=== PATIENT | female | born 1965 | race Caucasian/White ===

== ENCOUNTER → 2016-04-26 | Outpatient (CLI) | payer BC, OTHER ==
--- NOTE | 2016-04-26 10:53 | REP ---
Clinical: History of medullary sponge kidney. Technique: Real time car scale and color evaluation using curved array transducer. Findings: Right kidney is relatively normal in reniform shape and measures 10.0 x 5.8 x 4.0 cm diffusely echogenic calyces is consistent with history of medullary sponge kidney and multiple intrarenal calculi are identified without hydronephrosis. Irregular contour along the lower pole of the right kidney is suggested and mass cannot be excluded. Left kidney is normal in reniform shape and measures 11.5 x 5.6 x 5.8 cm with diffusely echogenic calyces consistent with history of medullary sponge kidney. Multiple intrarenal calculi are identified without evidence for hydronephrosis. Two mid pole cysts measure 2.2 cm and 1.8 cm maximal diameter each. Impression: 1. Evidence for medullary sponge kidney with multiple bilateral intrarenal calculi. Two left renal cysts noted. 2. Contour abnormality along the lower pole of the right kidney cannot exclude mass lesion. Pre and postcontrast CT may be warranted for further investigation. Signed by Gonzalo Polanco MD 04/26/2016 10:44 A
== END ==
LOC: M RAD 08:58
PROVIDERS: ATTEND Urology
DX: N20.0 Calculus of kidney (principal); Q61.5 Medullary cystic kidney

== ENCOUNTER → 2016-07-11 | Outpatient (CLI) | payer BC ==
--- NOTE | 2016-07-11 14:59 | REPMRS ---
Patient History The patient states she had a clinical breast exam in 07/24 Patient has history of skin cancer at age 31 and had first child at age 34. No known family history of cancer. Digital Woman Screen Mammo: July 11, 2016 - Exam #: [id number] Bilateral MLO, CC, and LMO view(s) were taken. Technologist: Kami Yanez, Technologist Prior study comparison: June 07, 2015, digital woman screen mammo performed at [facility]. May 05, 2014, right breast digital mammo diagnostic unilateral, performed at [facility]. FINDINGS: The breast tissue is extremely dense which could obscure a lesion on mammography. There is no evidence of cancer on this mammogram. No significant changes when compared with prior studies. ASSESSMENT: BI-RADS/ACR category 2 mammogram. Benign finding(s). Recommendation Routine screening mammogram of both breasts in 1 year (for women over age 40). This mammogram was interpreted with the aid of an FDA-approved computer-aided dectection system. Electronically Signed By: Gregory Kruse MD 07/11/16 [id number]
== END ==
LOC: M WHC 13:03
PROVIDERS: ATTEND Nurse Practitioner Women's Health
DX: Z12.31 Encounter for screening mammogram for malignant neoplasm of breast (principal); R92.8 Other abnormal and inconclusive findings on diagnostic imaging of breast

== ENCOUNTER → 2016-07-11 | Outpatient (REF) | payer OTHER | LOC: M SFHCWAGY 13:48 | PROVIDERS: ATTEND Nurse Practitioner Women's Health | DX: Z12.4 Encounter for screening for malignant neoplasm of cervix (principal) ==

== ENCOUNTER → 2016-08-16 | Outpatient (CLI) | payer BC, OTHER ==
--- NOTE | 2016-08-16 15:42 | REP ---
Renal ultrasound: Comparisons 04/26/2016. The patient has a history of medullary sponge kidneys. The kidneys are normal size. The right kidney measures 10.4 by 6.2 x 4.8 cm. Left kidney measures 11.4 4.1 x 4.7 cm. Renal cortical echogenicity is normal bilaterally. There is no hydronephrosis, mass or cyst on the right on the left. There are echogenic renal pyramids bilaterally compatible with the nephrocalcinosis of medullary sponge kidneys. This is unchanged from the prior study. The bladder is minimally distended and cannot be further evaluated. We are unable to identify ureteral jets into the urinary bladder, however, there is no hydronephrosis. Impression: Echogenic renal pyramids bilaterally compatible with the nephrocalcinosis associated with medullary sponge kidneys. Otherwise, negative renal ultrasound. No interval change. Signed by Gregory Torrez MD 08/16/2016 03:33 P
== END ==
LOC: M RAD 13:59
PROVIDERS: ATTEND Urology
DX: N20.0 Calculus of kidney (principal)

== ENCOUNTER → 2016-11-01 | Outpatient (CLI) | payer BC, OTHER ==
--- NOTE | 2016-11-01 15:03 | REP ---
KUB, TWO VIEWS: HISTORY: Kidney stones. COMPARISON: 06/13/2015 Multiple calcifications are present in the kidneys consistent with nephrolithiasis. There are no calcifications in the pelvis. Surgical jerry are present in the pelvis. The intestinal gas pattern is nonspecific. IMPRESSION: Bilateral nephrolithiasis. Signed by Siddhartha Csae MD 11/01/2016 03:12 P
== END ==
LOC: M RAD 13:14
PROVIDERS: ATTEND Urology
DX: N20.0 Calculus of kidney (principal)

== ENCOUNTER → 2017-02-14 | Outpatient (CLI) | payer BC, OTHER ==
--- NOTE | 2017-02-14 15:42 | REP ---
KUB, ONE VIEW: HISTORY: Renal calculi. COMPARISON: 11/01/2016. Multiple calcifications are present in the kidneys consistent with nephrolithiasis. Surgical jerry are present in the pelvis. The intestinal gas pattern is nonspecific. IMPRESSION: Bilateral nephrolithiasis. Signed by Siddhartha Case MD 02/14/2017 03:50 P
--- NOTE | 2017-02-14 16:54 | REP ---
RENAL ULTRASOUND: HISTORY: Nephrocalcinosis. COMPARISON: 08/16/2016 The kidneys are normal in echogenicity. The right kidney measures 6.4 cm in transverse x 4.9 cm in AP x 10 cm in cephalocaudal dimensions. The left kidney measures 6.2 cm in transverse x 6 cm in AP x 10.2 cm in cephalocaudal dimensions. Multiple calcifications are present in the kidneys bilaterally. Two cysts are present in the lower pole of the left kidney. These measure 1.5 and 2.5 cm in maximum dimension. There are no filling defects in the urinary bladder. IMPRESSION: 1. Bilateral nephrolithiasis. 2. There are two small cysts in the lower pole of the left kidney. Signed by Siddhartha Case MD 02/14/2017 04:57 P
== END ==
LOC: M RAD 13:02
PROVIDERS: ATTEND Urology
DX: N20.0 Calculus of kidney (principal); N28.1 Cyst of kidney, acquired

== ENCOUNTER → 2017-03-27 | Outpatient (REF) | payer OTHER ==
[2017-03-27 20:00] LABS: HEMATOCRIT 40.1 % (36.0-47.0); HEMOGLOBIN 12.9 g/dl (12.0-16.0); MEAN CORPUSCULAR HEMOGLOBIN 31.2 pg (27.0-33.0); MEAN CORPUSCULAR HGB CONC 32.2 g/dl (32.0-36.5); MEAN CORPUSCULAR VOLUME 97.1 fl (80.0-96.0); PLATELET COUNT, AUTOMATED 221 10^3/uL (150-450); RED BLOOD COUNT 4.13 10^6/uL (4.00-5.40); WHITE BLOOD COUNT 5.1 10^3/uL (4.0-10.0)
[2017-03-27 20:05] LABS: FOLATE 17.6 NG/ML (>5.4); VITAMIN B12 LEVEL 627 PG/ML (247-911)
[2017-03-27 20:07] LABS: ALBUMIN/GLOBULIN RATIO 1.03 (1.00-1.93); ALKALINE PHOSPHATASE 59 U/L (45-117); ALT/SGPT 24 U/L (12-78); ANION GAP 5 MEQ/L (8-16); AST/SGOT 20 U/L (7-37); BILIRUBIN,TOTAL 0.5 MG/DL (0.2-1.0); BLOOD UREA NITROGEN 9 MG/DL (7-18); CARBON DIOXIDE LEVEL 32 MEQ/L (21-32); CHLORIDE LEVEL 102 MEQ/L (98-107); FREE T4 0.76 NG/DL (0.76-1.46); GLOMERULAR FILTRATION RATE > 60.0 (>51); GLUCOSE, FASTING 101 MG/DL (70-105); POTASSIUM SERUM 4.1 MEQ/L (3.5-5.1); SODIUM LEVEL 139 MEQ/L (136-145); TOTAL PROTEIN 7.9 GM/DL (6.4-8.2)
[2017-03-27 20:54] LABS: TOTAL 25(OH) VITAMIN D 9.7 NG/ML (30.0-100.0)
== END ==
LOC: M SFHCADAM 14:56
DX: R53.83 Other fatigue (principal); N20.2 Calculus of kidney with calculus of ureter

== ENCOUNTER 2017-05-16 06:42 | Day surgery (SDC) | payer BC, OTHER ==
[2017-05-16] MEDS ORDERED: NS 1,000 ML IV (07:00)
[2017-05-16] MEDS ORDERED: PROPOFOL 200 MG/20 ML VIAL As Ordered ×4 (07:07→07:08)
[2017-05-16] MEDS ORDERED: LIDOCAINE 2% INJ 100 MG/5 ML SDV (FOR ANES.) As Ordered ×4 (07:07→07:08)
[2017-05-16] MEDS ORDERED: SIMETHICONE 40MG/0.6ML DROPS 30ML As Ordered (07:15)
[2017-05-16] MEDS ORDERED: ONDANSETRON 4MG/2ML VIAL (J2405) As Ordered (08:10)
== END 2017-05-16 08:51 | disposition home or self-care (01) ==
LOC: M OPP 06:42
DX: Z12.11 Encounter for screening for malignant neoplasm of colon (principal); Q43.8 Other specified congenital malformations of intestine; Q61.5 Medullary cystic kidney; Q79.2 Exomphalos; Z87.442 Personal history of urinary calculi; Z88.1 Allergy status to other antibiotic agents; Z88.2 Allergy status to sulfonamides; Z83.71 Family history of colonic polyps
CPT/HCPCS: G0121

== ENCOUNTER → 2017-07-17 | Outpatient (CLI) | payer BC | LOC: M WHC 13:06 | DX: Z13.21 Encounter for screening for nutritional disorder (principal); Z13.820 Encounter for screening for osteoporosis | CPT/HCPCS: 77067 ==

== ENCOUNTER → 2017-07-26 | Outpatient (CLI) | payer BC, OTHER | LOC: M WUC 10:52 | DX: S92.351A Displaced fracture of fifth metatarsal bone, right foot, initial encounter for closed fracture (principal); X58.XXXA Exposure to other specified factors, initial encounter; Y92.89 Other specified places as the place of occurrence of the external cause | CPT/HCPCS: 73630 ==

== ENCOUNTER → 2017-11-13 | Outpatient (CLI) | payer BC, OTHER | LOC: M RAD 07:05 | DX: N20.0 Calculus of kidney (principal) ==

== ENCOUNTER → 2017-12-25 | Outpatient (CLI) | payer BC, OTHER | LOC: M ADAMS 16:00 | DX: M79.671 Pain in right foot (principal) | CPT/HCPCS: 73630 ==

== ENCOUNTER → 2018-01-05 | Outpatient (CLI) | payer BC, OTHER ==
[2018-01-05 19:47] LABS: HEMATOCRIT 38.5 % (36.0-47.0); HEMOGLOBIN 12.2 g/dl (12.0-15.5); MEAN CORPUSCULAR HGB CONC 31.7 g/dl (32.0-36.5); PLATELET COUNT, AUTOMATED 168 10^3/uL (150-450); RED BLOOD COUNT 3.93 10^6/uL (4.00-5.40); RED CELL DISTRIBUTION WIDTH 12.9 % (11.5-14.5); WHITE BLOOD COUNT 4.5 10^3/uL (4.0-10.0)
[2018-01-05 20:04] LABS: ALBUMIN 3.9 GM/DL (3.2-5.2); ALBUMIN/GLOBULIN RATIO 1.18 (1.00-1.93); ALKALINE PHOSPHATASE 64 U/L (45-117); ALT/SGPT 26 U/L (12-78); ANION GAP 4 MEQ/L (8-16); AST/SGOT 22 U/L (7-37); BILIRUBIN,TOTAL 0.5 MG/DL (0.2-1.0); BLOOD UREA NITROGEN 10 MG/DL (7-18); CALCIUM LEVEL 9.1 MG/DL (8.5-10.1); CARBON DIOXIDE LEVEL 30 MEQ/L (21-32); CHLORIDE LEVEL 104 MEQ/L (98-107); FREE T4 0.81 NG/DL (0.76-1.46); GLOMERULAR FILTRATION RATE > 60.0 (>51); GLUCOSE, FASTING 84 MG/DL (70-100); POTASSIUM SERUM 4.3 MEQ/L (3.5-5.1); SODIUM LEVEL 138 MEQ/L (136-145); TOTAL PROTEIN 7.2 GM/DL (6.4-8.2)
[2018-01-05 20:05] LABS: PTH INTACT 88.5 PG/ML (18.5-88.0); TOTAL 25(OH) VITAMIN D 52.4 NG/ML (30.0-100.0)
[2018-01-07 10:13] LABS: TISSUE TRANSGLUTAMINASE IgA <2 U/mL (0-3)
== END ==
LOC: M WUC 17:37
DX: M81.8 Other osteoporosis without current pathological fracture (principal); Q61.5 Medullary cystic kidney; E55.9 Vitamin D deficiency, unspecified
CPT/HCPCS: 84443

== ENCOUNTER → 2018-01-09 | Outpatient (CLI) | payer OTHER, BC ==
[2018-01-09 17:12] LABS: PTH INTACT 74.5 PG/ML (18.5-88.0)
== END ==
LOC: M WUC 14:50
DX: M81.8 Other osteoporosis without current pathological fracture (principal)

== ENCOUNTER → 2018-07-23 | Outpatient (CLI) | payer BC ==
[~2018-07-23] MED LIST: CIPR250T3 PO; MAGN200T8 PO; MIRA33504 PO; VITA50005 PO; VITATAB11 PO
--- NOTE | 2018-07-23 17:21 | REPMRS ---
Patient History The patient states she had a clinical breast exam in 07/2018. No known family history of cancer. Digital Woman Screen Mammo: July 23, 2018 - Exam #: [id number] Bilateral MLO, CC, and LMO view(s) were taken. Technologist: Kami Yanez, Technologist Prior study comparison: July 17, 2017, digital woman screen mammo performed at [facility]. July 11, 2016, digital woman screen mammo performed at [facility]. June 07, 2015, digital woman screen mammo performed at [facility]. FINDINGS: The breast tissue is heterogeneously dense. This may lower the sensitivity of mammography. There is a moderate amount of heterogeneously dense fibroglandular tissue which is fairly symmetric. There is no interval development of dominant mass, architectural distortion, or clustered microcalcification typical of malignancy. There has been no change in the appearance of the mammogram from the prior studies. 3-D tomosynthesis shows no additional findings. Assessment: BI-RADS/ACR category 1 mammogram. Negative Mammogram. Recommendation Routine screening mammogram of both breasts in 1 year (for women over age 40). This patient's Lifetime Breast Cancer RIsk is estimated at 11.2 %. This mammogram was interpreted with the aid of an FDA-approved computer-aided dectection system. Electronically Signed By: Roberto Cheatham MD 07/23/18 [id number]
== END ==
LOC: M WHC 13:20
PROVIDERS: ATTEND Nurse Practitioner Women's Health
DX: Z12.31 Encounter for screening mammogram for malignant neoplasm of breast (principal)

== ENCOUNTER → 2018-07-23 | Outpatient (REF) | payer OTHER ==
[2018-07-25 15:51] LABS: HPV HYBRID CAPTURE II Negative (Negative)
== END ==
LOC: M SFHCWAGY 13:20
PROVIDERS: ATTEND Nurse Practitioner Women's Health
DX: Z12.4 Encounter for screening for malignant neoplasm of cervix (principal)
CPT/HCPCS: 87624; G0123

== ENCOUNTER → 2018-08-27 | Outpatient (CLI) | payer BC, OTHER ==
--- NOTE | 2018-08-27 16:15 | REP ---
Unilateral left-sided rib series: Five views including PA chest. History: Chronic pain. Comparison chest x-ray: June 28, 2013. Findings: PA chest radiograph is normal. There is no evidence of pneumothorax or hydrothorax. Mediastinum is not widened. The aorta somewhat tortuous. Heart is not enlarged. Multiple views of the left rib cage show no evidence of rib fracture or bony destructive lesion. Impression: Negative left rib radiographs. Electronically Signed by Ronald Cheatham MD 08/27/2018 04:07 P
--- NOTE | 2018-08-27 16:18 | REP ---
Thoracic spine series: Three views. History: Chronic pain. Comparison is made with prior chest x-rays from June 28, 2013. Findings: There is a mild S-shaped thoracic scoliotic curvature. There is diffuse osteopenia. The curvature is unchanged. There is minimal wedging of one of the mid-thoracic vertebrae, also unchanged from the 2014 study. Mild degenerative disc changes are noted. No paravertebral soft-tissue mass is seen. No bony destructive lesion is appreciated. Swimmers lateral view shows no additional abnormality. Impression: Mild diffuse osteopenia. Mild thoracic scoliosis. Degenerative disc changes. No acute abnormality. Electronically Signed by Ronald Cheatham MD 08/27/2018 04:09 P
== END ==
LOC: M ADAMS 15:05
PROVIDERS: ATTEND Physician Assistant
DX: M41.54 Other secondary scoliosis, thoracic region (principal); M51.34 Other intervertebral disc degeneration, thoracic region

== ENCOUNTER → 2018-09-16 | Outpatient (REF) | payer OTHER | LOC: M SFHCADAM 11:34 | PROVIDERS: ATTEND Family Medicine | DX: M81.8 Other osteoporosis without current pathological fracture (principal); Q61.5 Medullary cystic kidney; E55.9 Vitamin D deficiency, unspecified ==

== ENCOUNTER → 2018-11-27 | Outpatient (CLI) | payer BC, OTHER ==
--- NOTE | 2018-11-27 15:06 | REP ---
REASON: History of renal calculi. COMPARISON: Multiple, the latest prior of which is dated 11/13/2017. The right kidney measures 10.2 x 5.3 x 3.7 cm. The left kidney measures 10.8 x 6 x 5.8 cm. Numerable echogenic foci are again seen throughout each kidney which casts acoustic shadows consistent with nephrolithiasis. These are too numerous to count or individually assess. Overall, there does not appear to be a significant change when compared to the prior exam. There is bilateral caliceal prominence as was on the prior exam. There is no everette hydronephrosis on either side. The renal cortical echoes are again seen to be within normal limits. Evaluation of the urinary bladder was performed ultrasonographically, solely for the purpose of assessing for urojet phenomena from each UV junction. The images provided confirm bilateral urojet phenomena. IMPRESSION: Bilateral nephrolithiasis as described above, essentially unchanged when compared to the prior exam. Electronically Signed by Gian Mora DO 11/27/2018 03:57 P
== END ==
LOC: M RAD 12:53
PROVIDERS: ATTEND Urology
DX: N20.0 Calculus of kidney (principal)

== ENCOUNTER 2019-07-23 10:40 | Inpatient (IN) | payer BC, OTHER ==
[~2019-07-23] VITALS: Ht 180.3 cm; Wt 71.0 kg
[2019-07-23] MEDS ORDERED: ALEN70TA74 PO (10:49)
[2019-07-23] MEDS ORDERED: VITA50005 PO (10:49)
[2019-07-23] MEDS ORDERED: NS 1,000 ML IV ONE (11:15)
[2019-07-23 11:43] LABS: BASO % 0.3 % (0.0-1.0); HEMATOCRIT 40.6 % (36.0-47.0); HEMOGLOBIN 13.3 g/dl (12.0-15.5); LYMPH % 14.5 % (24.0-44.0); MEAN CORPUSCULAR HEMOGLOBIN 31.1 pg (27.0-33.0); MEAN CORPUSCULAR HGB CONC 32.8 g/dl (32.0-36.5); MEAN CORPUSCULAR VOLUME 95.1 fl (80.0-96.0); MONO # 0.6 10^3/uL (0.0-0.8); NEUTROPHILS # 5.3 10^3/uL (1.5-8.5); NEUTROPHILS % 75.8 % (36.0-66.0); PLATELET COUNT, AUTOMATED 179 10^3/uL (150-450); RED BLOOD COUNT 4.27 10^6/uL (4.00-5.40); WHITE BLOOD COUNT 6.9 10^3/uL (4.0-10.0)
[2019-07-23 12:11] LABS: CALCIUM LEVEL 8.7 MG/DL (8.5-10.1); CREATININE FOR GFR 1.07 MG/DL (0.55-1.30); GLOMERULAR FILTRATION RATE 57.1 (>51); POTASSIUM SERUM 3.7 MEQ/L (3.5-5.1)
[2019-07-23] MEDS ORDERED: NS 1,000 ML IV SCH (13:15)
[2019-07-23] MEDS ORDERED: MIRA3350 PO (13:38)
[2019-07-23] MEDS ORDERED: MAGN400C2 PO (13:38)
[2019-07-23] MEDS ORDERED: EQL50TAB2 PO (13:38)
[2019-07-23] MEDS ORDERED: MEROPENEM INJ 1 GM in IV 1 EA IV ONE (13:45)
--- NOTE | 2019-07-23 14:49 | REP ---
RENAL ULTRASOUND: Real-time sonographic evaluation of kidneys performed. Kidneys are normal in size and echotexture, right kidney measuring 11.0 x 6.4 x 3.9 cm and left kidney 10.6 x 4.6 x 5.1 cm. There is an extrarenal pelvis on the right without evidence of hydronephrosis bilaterally. Extensive echogenic calcifications are seen at the corticomedullary junction bilaterally representing medullary calcinosis and renal calculi. Prominent calcification in the upper pole of the right kidney measures 1.6 x 1.3 cm and in the lower pole 1.6 x 0.9 x 1.4 cm. Prominent calcification in the upper pole of the left kidney measures 1.8 cm in diameter. There is a cyst in the upper pole of the left kidney 1.7 cm in diameter. There are ureteral jets in the urinary bladder bilaterally with Doppler color evaluation. There is a small amount of debris in the bladder IMPRESSION: No hydronephrosis. Extensive medullary calcifications and bilateral renal calculi throughout both kidneys. No hydronephrosis. Ureteral jets seen in the urinary bladder. Electronically Signed by Gregory Kruse MD 07/23/2019 02:53 P
[2019-07-23 15:03] VITALS: BP 130/91
[2019-07-23] MEDS ORDERED: PERCOCET 5MG/325MG TAB PO PRN ×2 (15:30)
[2019-07-23] MEDS ORDERED: zolPIDEM TARTRATE 5 MG TAB PO PRN (15:30)
[2019-07-23] MEDS ORDERED: MORPHINE 4 MG/ML 1ML VIAL/SYRINGE (J2270) IV PRN (15:30)
[2019-07-23] MEDS ORDERED: NALOXONE INJ 0.4MG/1ML VIAL (J2310 PER 1MG) IV PRN (15:30)
[2019-07-23] MEDS: ACETAMINOPHEN TAB 650MG DOSE (2X325MG) PO PRN ×2 (15:33→23:02)
[2019-07-23] MEDS ORDERED: IBUPROFEN 400 MG TAB PO PRN (15:45)
[2019-07-23] MEDS ORDERED: MELATONIN (PATIENT'S OWN MED) PO SCH (21:00)
[2019-07-23 22:00] VITALS: BP 101/59
[2019-07-23] MEDS: MEROPENEM INJ 1 GM in IV 1 EA IV SCH (22:16)
[2019-07-24] MEDS: MEROPENEM INJ 1 GM in IV 1 EA IV SCH ×3 (05:52→21:00)
[2019-07-24 06:00] VITALS: BP 113/70
[2019-07-24 06:14] LABS: BASO % 0.2 % (0.0-1.0); EOS % 0.2 % (0.0-3.0); HEMATOCRIT 37.9 % (36.0-47.0); LYMPH # 1.2 10^3/uL (1.5-5.0); LYMPH % 20.2 % (24.0-44.0); MEAN CORPUSCULAR HEMOGLOBIN 30.9 pg (27.0-33.0); MEAN CORPUSCULAR HGB CONC 31.7 g/dl (32.0-36.5); MEAN CORPUSCULAR VOLUME 97.7 fl (80.0-96.0); MONO # 0.6 10^3/uL (0.0-0.8); MONO % 9.8 % (0.0-5.0); NEUTROPHILS # 4.2 10^3/uL (1.5-8.5); NEUTROPHILS % 69.3 % (36.0-66.0); PLATELET COUNT, AUTOMATED 137 10^3/uL (150-450); RED BLOOD COUNT 3.88 10^6/uL (4.00-5.40)
[2019-07-24 06:41] LABS: BLOOD UREA NITROGEN 9 MG/DL (7-18); CALCIUM LEVEL 7.9 MG/DL (8.5-10.1); CARBON DIOXIDE LEVEL 27 MEQ/L (21-32); CHLORIDE LEVEL 109 MEQ/L (98-107); CREATININE FOR GFR 0.84 MG/DL (0.55-1.30); GLOMERULAR FILTRATION RATE > 60.0 (>51); GLUCOSE, FASTING 87 MG/DL (70-100); POTASSIUM SERUM 3.9 MEQ/L (3.5-5.1); SODIUM LEVEL 141 MEQ/L (136-145)
[2019-07-24] MEDS: MAGNESIUM OXIDE 400 MG TAB (MAG-OX) PO SCH (08:41)
[2019-07-24] MEDS: VITAMIN B COMPLEX/VIT C CAP PO SCH (08:41)
[2019-07-24] MEDS: MIRALAX *UNIT DOSE* 17GM PACKET PO SCH (08:41)
[2019-07-24] MEDS ORDERED: NON-FORMULARY 1 EA EA PO SCH (09:00)
--- NOTE | 2019-07-24 09:06 | HPE ---
DATE OF ADMISSION: 07/23/2019 CHIEF COMPLAINT: Fever. 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 Samra Meyer with recurrent kidney stones since the age of 19, multiple lithotripsies, and about 25 kidneys stones removed out of the left kidney with left kidney percutaneous stone removal in 2016. Irritable bowel syndrome with small bowel obstruction times two in 1987, section on omphalocele surgery at , Pseudomonas urinary tract infection detected in 2018 resistant to Levaquin and nitrofurantoin. Patient had been in her usual state of health until last night when she had a low grade temperature of 100.9 at home, when she rechecked it, it was 101.1. She denies any dysuria, urgency, frequency and says that she barely has no symptoms. She was seen at Dr. Kahn's office who did a urinalysis (UA) and treated her with Augmentin. Last night she took two Excedrin due to complaints of headache after sleeping on the floor away from her because she was concerned about COVID-19. Patient has allergies to cephalexin causing rash without hypertension or gastrointestinal upset or anaphylaxis. Patient presented to the minor treatment in the emergency room and found to have a fever of 100.8. Renal ultrasound showed no hydronephrosis or obstructive kidney stone. No pyonephritis. Hospitalist was called to admit for urinary tract infection, prior history of Pseudomonas resistant to nitrofurantoin and Levaquin. Patient, otherwise denies any chills, nausea, vomiting. No abdominal pain, diarrhea, shortness of breath, pressure tightness or cough. Denies anxiety or depression. Patient denies history of irritable bowel syndrome on chronic MiraLAX and is worried about missing her home medications. Her will bring this in later today after work. She is requesting to take her own medications from home. PAST MEDICAL HISTORY: Medullary sponge kidney. Recurrent urinary tract infections and kidneys stones since the age of 19. Lithotripsy. 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 25 kidney stones to date. Basal cell carcinoma (BCCA) times two follows with dermatology in [place] every 6 months. Irritable bowel syndrome. Venous insufficiency. Osteoporosis. Vitamin D deficiency. Pseudomonas urinary trace infection resistant to quinolones and nitrofurantoin. PAST SURGICAL HISTORY: Omphalocele surgery at . Small bowel obstruction times two in 1987. section 2000. Lithotripsies. Varicose vein repair 2013 and 2014. Percutaneous stone removal of left kidney 2015. Colonoscopy May 2017. HOME MEDICATIONS: - vitamin D 50,000 units weekly. - Mag-Ox 400 daily - MiraLAX 17 grams daily - Vitamin B complex one tablet daily - alendronate 70 mg weekly - Cipro 125 daily as needed for urinary tract infection (UTI) prevention - melatonin nightly ALLERGIES: SULFA, CEPHALEXIN causing rash. FAMILY HISTORY: Father with hyperlipidemia. Sister with thyroid nodules. Mother with BCCA. 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 No recreational drug use, alcohol abuse or tobacco abuse. REVIEW OF SYSTEMS: Per the history of present illness (HPI). 12-point system otherwise negative. PHYSICAL EXAMINATION: Temperature 102.4, pulse 91, respiratory rate 15, blood pressure 130/91, 96% on room air. Generally, patient is awake, alert, oriented times three, answering questions appropriately. Anicteric. No jaundice. No cyanosis. No facial asymmetry. Tongue is midline. Moist mucous membranes. No cervical lymphadenopathy, thyromegaly or pharyngeal erythema. Lungs are clear to auscultation. No wheezing, rales or rhonchi. Heart: S1, S2, sinus rhythm. No murmurs, rubs or gallops. Abdomen is soft, nontender, nondistended. Positive bowel sounds in four quadrants. No rebound or guarding. No costovertebral angle tenderness. Extremities: No cyanosis, clubbing or any pitting edema. LABORATORY DATA: White count 6.9, hemoglobin 13, hematocrit 40, platelet count 179. Sodium 139, potassium 3.7, chloride 103, bicarbonate 26, BUN 9, creatinine 1.07, glucose 98, lactic acid 0.9, calcium 8.7. Urinalysis: Yellow hazy appearance, pH 7, specific gravity 1.002. Urine protein negative, glucose negative, ketones negative, 2+ blood, negative nitrites, negative bilirubin, 3+ leukocyte esterase, 38 WBCs, 11 RBCs, 2+ bacteria. Blood cultures times two sets negative and pending. Urine culture is pending. Renal ultrasound: No hydronephrosis. Extensive medullary calcifications and bilateral renal calculi throughout both kidneys. No hydronephrosis, ureteral jets seen in the urinary bladder. ASSESSMENT/PLAN: 53-year-old female with history of medullary sponge kidney with recurrent kidney stones since the age of 19, multiple lithotripsies and 25 kidney stones today, omphalocele surgery as a kid due to Noemi-Wiedemann syndrome, irritable bowel syndrome presented to the emergency room with low grade fever at home and found to have a fever of 102.4 and a UTI admitted for sepsis secondary to UTI. IMPRESSION: 1. Sepsis secondary to urinary tract infection: Previous culture grew out Pseudomonas resistant to Levaquin and nitrofurantoin. Patient has an allergy to cephalexin causing a rash. No hypotension or anaphylaxis. Patient is currently started on meropenem every 8 hours. Await urine culture. Monitor for transient bacteremia on blood cultures. Symptomatic and supportive care with Tylenol as needed for fever. Ibuprofen if patient has persistent fever until she defervesces. Intravenous fluids. Lactic acid is normal. Patient is medically stable to stay on the medical/surgical floor at this time. Patient's renal ultrasound did not show any hydronephrosis. Creatinine is normal. Therefore, will permit the use of Ibuprofen. 2. Irritable bowel syndrome: Patient may resume her home dose of MiraLAX. 3. Osteoporosis: Continue on alendronate, vitamin D supplementation. 4. Chronic insomnia: May resume on home dose of melatonin nightly. 5. Medullary sponge kidney with recurrent kidney stones. Monitor for obstructive stones. Denies any hematuria. Renal ultrasound shows no obstruction. Trial of IV fluids. 6. Recurrent UTI. on merem IV.awaiting sensitivity results. will need to complete iv antibiotics with daily infusion as outpt as pt needs to return to work this week. Deep venous thrombosis (DVT) prophylaxis with compression stockings. MTDD
--- NOTE | 2019-07-24 13:55 | IPNPDOC ---
Date Seen The patient was seen on 07/24/19. Progress Note SUBJECTIVE: c/o chills and night sweats overnight, with Tmax 102.4.denies dysuria, urgency, frequency. no n/v/abd pain/d/constipation. PHYSICAL EXAMINATION: vitals: pls see below Generally, patient is awake, alert, oriented times three, answering questions appropriately. HEENT:Anicteric. No jaundice. No cyanosis. No facial asymmetry. Tongue is midline. Moist mucous membranes. No cervical lymphadenopathy, thyromegaly or pharyngeal erythema.NO jvd. Lungs are clear to auscultation. I:E ratio 3:1. No wheezing, rales or rhonchi. Heart: S1, S2, sinus rhythm. No murmurs, rubs or gallops. Abdomen is soft, nontender, nondistended. Positive bowel sounds in four quadrants. No rebound or guarding. No costovertebral angle tenderness. Extremities: No cyanosis, clubbing or any pitting edema. LABORATORY DATA: see below Urinalysis: Yellow hazy appearance, pH 7, specific gravity 1.002. Urine protein negative, glucose negative, ketones negative, 2+ blood, negative nitrites, negative bilirubin, 3+ leukocyte esterase, 38 WBCs, 11 RBCs, 2+ bacteria. MICROBIOLOGY: Blood cultures times two sets negative and pending. Urine culture is pending. Renal ultrasound: No hydronephrosis. Extensive medullary calcifications and bilateral renal calculi throughout both kidneys. No hydronephrosis, ureteral jets seen in the urinary bladder. 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 Samra Meyer with recurrent kidney stones since the age of 19, multiple lithotripsies, and about 25 kidneys stones removed out of the left kidney with left kidney percutaneous stone removal in 2016. Irritable bowel syndrome with small bowel obstruction times two in 1987, section on omphalocele surgery at , Pseudomonas urinary tract infection detected in 2018 resistant to Levaquin and nitrofurantoin. Patient had been in her usual state of health until last night when she had a low grade temperature of 100.9 at home, when she rechecked it, it was 101.1. She denies any dysuria, urgency, frequency and says that she barely has no symptoms. She was seen at Dr. Kahn's office who did a urinalysis (UA) and treated her with Augmentin. Last night she took two Excedrin due to complaints of headache after sleeping on the floor away from her because she was concerned about COVID-19. Patient has allergies to cephalexin causing rash without hypertension or gastrointestinal upset or anaphylaxis. Patient presented to the [facility] treatment in the emergency room and found to have a fever of 100.8. Renal ultrasound showed no hydronephrosis or obstructive kidney stone. No pyonephritis. Hospitalist was called to admit for urinary tract infection, prior history of Pseudomonas resistant to nitrofurantoin and Levaquin. Patient, otherwise denies any chills, nausea, vomiting. No abdominal pain, diarrhea, shortness of breath, pressure tightness or cough. Denies anxiety or depression. Patient denies history of irritable bowel syndrome on chronic MiraLAX and is worried about missing her home medications. Her will bring this in later today after work. She is requesting to take her own medications from home. IMPRESSION: 1. Sepsis secondary to urinary tract infection: Previous culture grew out Pseudomonas resistant to Levaquin and nitrofurantoin. Patient has an allergy to cephalexin causing a rash. No hypotension or anaphylaxis. Patient is currently started on meropenem every 8 hours. Await urine culture. Monitor for transient bacteremia on blood cultures. Symptomatic and supportive care with Tylenol as needed for fever. Ibuprofen if patient has persistent fever until she defervesces. Intravenous fluids. Lactic acid is normal. Patient is medically stable to stay on the medical/surgical floor at this time. Patient's renal ultrasound did not show any hydronephrosis. Creatinine is normal. Therefore, will permit the use of Ibuprofen, but will monitor for azotemia. 2. Complicated UTI in the setting of Medullary Sponge Kidney, with recurrent kidney stones. no signs of hydronephrosis, pyelonephritis. on IV merem. awaiting urine culture results. may complete 7days course of abx via daily iv infusions. Tmax 102.4, but has since defervesced, with normal wbc count and asymptomatic. 3. Irritable bowel syndrome: Patient may resume her home dose of MiraLAX. 4. Osteoporosis: Continue on alendronate, vitamin D supplementation. 5. Chronic insomnia: May resume on home dose of melatonin nightly. 6. Medullary sponge kidney with recurrent kidney stones. Monitor for obstructive stones. Denies any hematuria. Renal ultrasound shows no obstruction. Trial of IV fluids. Deep venous thrombosis (DVT) prophylaxis with compression stockings. VS, I&O, 24H, Fishbone Vital Signs/I&O Vital Signs Date Time Temp Pulse Resp B/P (MAP) Pulse Ox O2 Delivery O2 Flow Rate FiO2 07/24/19 06:00 98.8 71 18 113/70 (84) 99 Room Air I&O- Last 24 Hours up to 6 AM 07/24/19 06:00 Intake Total 2080 ml Output Total 0 ml Balance 2080 ml Laboratory Data 24H LABS Laboratory Tests 2 07/24/19 05:40: Immature Granulocyte % (Auto) 0.3, Neutrophils (%) (Auto) 69.3H, Lymphocytes (%) (Auto) 20.2L, Monocytes (%) (Auto) 9.8H, Eosinophils (%) (Auto) 0.2, Basophils (%) (Auto) 0.2, Neutrophils # (Auto) 4.2, Lymphocytes # (Auto) 1.2L, Monocytes # (Auto) 0.6, Eosinophils # (Auto) 0.0, Basophils # (Auto) 0.0, Nucleated Red Blood Cells % (auto) 0.0, Anion Gap 5L, Glomerular Filtration Rate > 60.0, Calcium Level 7.9L CBC/BMP Laboratory Tests 07/24/19 05:40 Microbiology Microbiology 07/23/19 Blood Culture - Preliminary, Resulted No growth after 24 hours . All specim... 07/23/19 Urine Culture, Received Pending 07/23/19 Blood Culture - Preliminary, Resulted No growth after 24 hours . All specim... SIOMARA SHELTON MD July 24, 2019 13:55
[2019-07-24 14:00] VITALS: BP 116/71
[2019-07-24 22:00] VITALS: BP 114/65
[2019-07-25] MEDS ORDERED: RAMELTEON 8 MG TAB (ROZEREM) PO ONE (02:15)
[2019-07-25 06:00] VITALS: BP 119/66
[2019-07-25] MEDS: MEROPENEM INJ 1 GM in IV 1 EA IV SCH (06:09)
[2019-07-25 06:26] LABS: BASO % 0.6 % (0.0-1.0); EOS # 0.1 10^3/uL (0.0-0.5); EOS % 1.8 % (0.0-3.0); LYMPH # 1.9 10^3/uL (1.5-5.0); LYMPH % 36.8 % (24.0-44.0); MEAN CORPUSCULAR HEMOGLOBIN 31.5 pg (27.0-33.0); MEAN CORPUSCULAR HGB CONC 32.4 g/dl (32.0-36.5); MEAN CORPUSCULAR VOLUME 97.1 fl (80.0-96.0); MONO # 0.6 10^3/uL (0.0-0.8); MONO % 11.9 % (0.0-5.0); NEUTROPHILS # 2.5 10^3/uL (1.5-8.5); NEUTROPHILS % 48.7 % (36.0-66.0); PLATELET COUNT, AUTOMATED 142 10^3/uL (150-450); RED BLOOD COUNT 3.81 10^6/uL (4.00-5.40); WHITE BLOOD COUNT 5.1 10^3/uL (4.0-10.0)
[2019-07-25 06:49] LABS: BLOOD UREA NITROGEN 10 MG/DL (7-18); CALCIUM LEVEL 8.1 MG/DL (8.5-10.1); CARBON DIOXIDE LEVEL 27 MEQ/L (21-32); CHLORIDE LEVEL 109 MEQ/L (98-107); CREATININE FOR GFR 0.73 MG/DL (0.55-1.30); GLOMERULAR FILTRATION RATE > 60.0 (>51); GLUCOSE, FASTING 87 MG/DL (70-100); SODIUM LEVEL 143 MEQ/L (136-145)
[2019-07-25] MEDS ORDERED: ALENDRONATE 35MG TABLET PO SCH (07:00)
[2019-07-25] MEDS ORDERED: traZODone 100 MG TAB PO PRN (08:00)
[2019-07-25] MEDS ORDERED: zolPIDEM TARTRATE 5 MG TAB PO PRN (08:00)
[2019-07-25] MEDS: MAGNESIUM OXIDE 400 MG TAB (MAG-OX) PO SCH (08:25)
[2019-07-25] MEDS: VITAMIN B COMPLEX/VIT C CAP PO SCH ×2 (08:25→08:27)
[2019-07-25] MEDS: MIRALAX *UNIT DOSE* 17GM PACKET PO SCH (08:25)
[2019-07-25] MEDS ORDERED: TOBRAMYCIN SULF IV SCH (11:00)
[2019-07-25] MEDS ORDERED: D5W IV SCH (11:00)
--- NOTE | 2019-07-25 11:55 | IPNPDOC ---
Date Seen The patient was seen on 07/25/19. Progress Note SUBJECTIVE:c/o insomnia without improvement. denies fever, chills. no n/v/d/abd pain. no dysuria,urgency,frequency PHYSICAL EXAMINATION: vitals: pls see below Generally, appears her stated age. normal affect patient is awake, alert, oriented times three, answering questions appropriately. HEENT:Anicteric. PERRL No jaundice. No cyanosis. No facial asymmetry. Tongue is midline. Moist mucous membranes. No cervical lymphadenopathy, thyromegaly or pharyngeal erythema.NO jvd. Lungs are clear to auscultation. I:E ratio 3:1. No wheezing, rales or rhonchi. Heart: S1, S2, sinus rhythm. No murmurs, rubs or gallops. Abdomen is soft, nontender, nondistended. Positive bowel sounds in four quadrants. No rebound or guarding. No costovertebral angle tenderness. Extremities: No cyanosis, clubbing or any pitting edema. LABORATORY DATA: see below Urinalysis: Yellow hazy appearance, pH 7, specific gravity 1.002. Urine protein negative, glucose negative, ketones negative, 2+ blood, negative nitrites, negative bilirubin, 3+ leukocyte esterase, 38 WBCs, 11 RBCs, 2+ bacteria. MICROBIOLOGY: Blood cultures times two sets negative and pending. Urine culture is pseudomonas sensive to tobramycin. Renal ultrasound: No hydronephrosis. Extensive medullary calcifications and bilateral renal calculi throughout both kidneys. No hydronephrosis, ureteral jets seen in the urinary bladder. 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 Samra Meyer with recurrent kidney stones since the age of 19, multiple lithotripsies, and about 25 kidneys stones removed out of the left kidney with left kidney percutaneous stone removal in 2016. Irritable bowel syndrome with small bowel obstruction times two in 1987, section on omphalocele surgery at , Pseudomonas urinary tract infection detected in 2018 resistant to Levaquin and nitrofurantoin. Patient had been in her usual state of health until last night when she had a low grade temperature of 100.9 at home, when she rechecked it, it was 101.1. She denies any dysuria, urgency, frequency and says that she barely has no symptoms. She was seen at Dr. Kahn's office who did a urinalysis (UA) and treated her with Augmentin. Last night she took two Excedrin due to complaints of headache after sleeping on the floor away from her because she was concerned about COVID-19. Patient has allergies to cephalexin causing rash without hypertension or gastrointestinal upset or anaphylaxis. Patient presented to the [facility] treatment in the emergency room and found to have a fever of 100.8. Renal ultrasound showed no hydronephrosis or obstructive kidney stone. No pyonephritis. Hospitalist was called to admit for urinary tract infection, prior history of Pseudomonas resistant to nitrofurantoin and Levaquin. Patient, otherwise denies any chills, nausea, vomiting. No abdominal pain, diarrhea, shortness of breath, pressure tightness or cough. Denies anxiety or depression. Patient denies history of irritable bowel syndrome on chronic MiraLAX and is worried about missing her home medications. Her will bring this in later today after work. She is requesting to take her own medications from home. IMPRESSION: 1. Sepsis secondary to urinary tract infection: Urine cx: pseudomonas resistant to quinolones. Patient has an allergy to cephalexin causing a rash. No hypotension or anaphylaxis. sp meropenem every 8 hours. changed to iv tobramycin daily to monitor for AE overnight, to continue x 3days as outpt via daily infusions in the infusion unit. Symptomatic and supportive care with Tylenol as needed for fever. Ibuprofen if patient has persistent fever until she defervesces. s/p Intravenous fluids. Lactic acid is normal. Patient is medically stable to stay on the medical/surgical floor at this time. Patient's renal ultrasound did not show any hydronephrosis. Creatinine is normal. Therefore, will permit the use of Ibuprofen, but will monitor for azotemia. 2. Complicated UTI in the setting of Medullary Sponge Kidney, with recurrent kidney stones. no signs of hydronephrosis, pyelonephritis may complete 7days course of abx via daily iv infusions. changed to iv tobramycin from iv merem. 3. Irritable bowel syndrome: Patient may resume her home dose of MiraLAX. 4. Osteoporosis: Continue on alendronate, vitamin D supplementation. 5. Chronic insomnia:prn ambien, trazodone 6. Medullary sponge kidney with recurrent kidney stones. Monitor for obstructive stones. Denies any hematuria. Renal ultrasound shows no obstruction. Trial of IV fluids. Deep venous thrombosis (DVT) prophylaxis with compression stockings. disposition:dc home in am. outpt iv tobramycin if approved by insurance x 3days. VS, I&O, 24H, Fishbone Vital Signs/I&O Vital Signs Date Time Temp Pulse Resp B/P (MAP) Pulse Ox O2 Delivery O2 Flow Rate FiO2 07/25/19 06:00 97.3 62 16 119/66 (83) 98 Room Air I&O- Last 24 Hours up to 6 AM 07/25/19 06:00 Intake Total 1755 ml Output Total 0 ml Balance 1755 ml Laboratory Data 24H LABS Laboratory Tests 2 07/25/19 06:04: Immature Granulocyte % (Auto) 0.2, Neutrophils (%) (Auto) 48.7, Lymphocytes (%) (Auto) 36.8, Monocytes (%) (Auto) 11.9H, Eosinophils (%) (Auto) 1.8, Basophils (%) (Auto) 0.6, Neutrophils # (Auto) 2.5, Lymphocytes # (Auto) 1.9, Monocytes # (Auto) 0.6, Eosinophils # (Auto) 0.1, Basophils # (Auto) 0.0, Nucleated Red Blood Cells % (auto) 0.0, Anion Gap 7L, Glomerular Filtration Rate > 60.0, Calcium Level 8.1L CBC/BMP Laboratory Tests 07/25/19 06:04 Microbiology Microbiology 07/23/19 Blood Culture - Preliminary, Resulted No Growth after 48 hours. All Specime... 07/23/19 Urine Culture - Final, Complete Pseudomonas Aeruginosa 07/23/19 Blood Culture - Preliminary, Resulted No Growth after 48 hours. All Specime... SIOMARA SHELTON MD July 25, 2019 11:55
[2019-07-25] MEDS: LACTOBACILLUS ACIDOPHILUS CAP (BACID) PO SCH ×2 (12:31→18:29)
[2019-07-25] MEDS ORDERED: [UNRECOGNIZED DRUG - CODE] IV ×3 (13:53→14:08)
[2019-07-25 14:00] VITALS: BP 110/60
[2019-07-25] MEDS ORDERED: BACI1CAP PO (14:03)
[2019-07-25 22:00] VITALS: BP 118/61
[2019-07-26 06:00] VITALS: BP 117/65
[2019-07-26 06:14] LABS: BASO % 0.8 % (0.0-1.0); EOS # 0.1 10^3/uL (0.0-0.5); EOS % 3.5 % (0.0-3.0); HEMATOCRIT 36.5 % (36.0-47.0); LYMPH # 1.7 10^3/uL (1.5-5.0); MEAN CORPUSCULAR HEMOGLOBIN 31.9 pg (27.0-33.0); MEAN CORPUSCULAR HGB CONC 32.9 g/dl (32.0-36.5); MEAN CORPUSCULAR VOLUME 97.1 fl (80.0-96.0); MONO # 0.4 10^3/uL (0.0-0.8); MONO % 8.8 % (0.0-5.0); NEUTROPHILS # 1.8 10^3/uL (1.5-8.5); NEUTROPHILS % 44.9 % (36.0-66.0); PLATELET COUNT, AUTOMATED 165 10^3/uL (150-450); RED BLOOD COUNT 3.76 10^6/uL (4.00-5.40)
[2019-07-26 06:32] LABS: BLOOD UREA NITROGEN 10 MG/DL (7-18); CALCIUM LEVEL 8.5 MG/DL (8.5-10.1); CARBON DIOXIDE LEVEL 27 MEQ/L (21-32); CHLORIDE LEVEL 109 MEQ/L (98-107); CREATININE FOR GFR 0.72 MG/DL (0.55-1.30); GLOMERULAR FILTRATION RATE > 60.0 (>51); GLUCOSE, FASTING 90 MG/DL (70-100); POTASSIUM SERUM 4.1 MEQ/L (3.5-5.1); SODIUM LEVEL 143 MEQ/L (136-145); TOBRAMYCIN RANDOM 0.4 MCG/ML
[2019-07-26] MEDS: MAGNESIUM OXIDE 400 MG TAB (MAG-OX) PO SCH (08:46)
[2019-07-26] MEDS: LACTOBACILLUS ACIDOPHILUS CAP (BACID) PO SCH (08:46)
[2019-07-26] MEDS: VITAMIN B COMPLEX/VIT C CAP PO SCH (08:47)
[2019-07-26] MEDS: MIRALAX *UNIT DOSE* 17GM PACKET PO SCH (08:48)
[2019-07-26] MEDS ORDERED: D5W IV SCH (09:00)
[2019-07-26] MEDS ORDERED: VITAMIN D 50,000 UNITS CAPSULE (ERGOCALCIFEROL 1.25MG) PO SCH (09:00)
[2019-07-26] MEDS ORDERED: TOBRAMYCIN SULF IV SCH (09:00)
--- NOTE | 2019-08-04 06:36 | DS.PDOC ---
Discharge Summary General Date of Admission July 23, 2019 at 13:09 Date of Discharge 07/26/19 Discharge Summary DISCHARGE DIAGNOSES: Sepsis secondary to urinary tract infection: Urine cx: pseudomonas resistant to quinolones. Medullary Sponge Kidney recurrent kidney stones since the age of 19, multiple lithotripsies Irritable bowel syndrome small bowel obstruction times two in 1987, section on omphalocele surgery at , Pseudomonas urinary tract infection detected in 2018 resistant to Levaquin and nitrofurantoin DISCHARGE MEDICATIONS:PLS SEE BELOW DISCHARGE INSTRUCTIONS: OUTPT IV TOBRAMYCIN X 3DAS, PCP TO REFER TO INFECTIOUS DISEASE. 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 Samra Meyer with recurrent kidney stones since the age of 19, multiple lithotripsies, and about 25 kidneys stones removed out of the left kidney with left kidney percutaneous stone removal in 2016. Irritable bowel syndrome with small bowel obstruction times two in 1987, section on omphalocele surgery at , Pseudomonas urinary tract infection detected in 2018 resistant to Levaquin and nitrofurantoin. Patient had been in her usual state of health until last night when she had a low grade temperature of 100.9 at home, when she rechecked it, it was 101.1. She denies any dysuria, urgency, frequency and says that she barely has no symptoms. She was seen at Dr. Kahn's office who did a urinalysis (UA) and treated her with Augmentin. Last night she took two Excedrin due to complaints of headache after sleeping on the floor away from her because she was concerned about COVID-19. Patient has allergies to cephalexin causing rash without hypertension or gastrointestinal upset or anaphylaxis. Patient presented to the minor treatment in the emergency room and found to have a fever of 100.8. Renal ultrasound showed no hydronephrosis or obstructive kidney stone. No pyonephritis. Hospitalist was called to admit for urinary tract infection, prior history of Pseudomonas resistant to nitrofurantoin and Levaquin. Patient, otherwise denies any chills, nausea, vomiting. No abdominal pain, diarrhea, shortness of breath, pressure tightness or cough. Denies anxiety or depression. Patient denies history of irritable bowel syndrome on chronic MiraLAX and is worried about missing her home medications. Her will bring this in later today after work. She is requesting to take her own medications from home. Sepsis secondary to urinary tract infection: Urine cx: pseudomonas resistant to quinolones. Patient has an allergy to cephalexin causing a rash. No hypotension or anaphylaxis. sp meropenem every 8 hours. changed to iv tobramycin daily to monitor for AE overnight, to continue x 3days as outpt via daily infusions in the infusion unit. Symptomatic and supportive care with Tylenol as needed for fever. Ibuprofen if patient has persistent fever until she defervesces. s/p Intravenous fluids. Lactic acid is normal. Patient is medically stable to stay on the medical/surgical floor at this time. Patient's renal ultrasound did not show any hydronephrosis. Creatinine is normal. Therefore, will permit the use of Ibuprofen, but will monitor for azotemia. Complicated UTI in the setting of Medullary Sponge Kidney, with recurrent kidney stones. no signs of hydronephrosis, pyelonephritis may complete 7days course of abx via daily iv infusions. changed to iv tobramycin from iv merem. Irritable bowel syndrome: Patient may resume her home dose of MiraLAX. Osteoporosis: Continue on alendronate, vitamin D supplementation. Chronic insomnia:prn ambien, trazodone Medullary sponge kidney with recurrent kidney stones. Monitor for obstructive stones. Denies any hematuria. Renal ultrasound shows no obstruction. Trial of IV fluids. Deep venous thrombosis (DVT) prophylaxis with compression stockings. disposition:dc home in am. outpt iv tobramycin if approved by insurance x 3days. DISCHARGE PHYSICAL EXAMINATION: vitals: pls see below Generally, appears her stated age. normal affect patient is awake, alert, oriented times three, answering questions appropriately. HEENT:Anicteric. PERRL No jaundice. No cyanosis. No facial asymmetry. Tongue is midline. Moist mucous membranes. No cervical lymphadenopathy, thyromegaly or pharyngeal erythema.NO jvd. Lungs are clear to auscultation. I:E ratio 3:1. No wheezing, rales or rhonchi. Heart: S1, S2, sinus rhythm. No murmurs, rubs or gallops. Abdomen is soft, nontender, nondistended. Positive bowel sounds in four quadrants. No rebound or guarding. No costovertebral angle tenderness. Extremities: No cyanosis, clubbing or any pitting edema. LABORATORY DATA: see below Urinalysis: Yellow hazy appearance, pH 7, specific gravity 1.002. Urine protein negative, glucose negative, ketones negative, 2+ blood, negative nitrites, negative bilirubin, 3+ leukocyte esterase, 38 WBCs, 11 RBCs, 2+ bacteria. MICROBIOLOGY: Blood cultures times two sets negative and pending. Urine culture is pseudomonas sensive to tobramycin. Renal ultrasound: No hydronephrosis. Extensive medullary calcifications and bilateral renal calculi throughout both kidneys. No hydronephrosis, ureteral jets seen in the urinary bladder. TIME SPENT ON HOSPITAL DISCHARGE: 30 MIN Discharge Medications Scheduled Alendronate Sodium (Alendronate Sodium) 70 Mg Tablet, 70 MG PO QWEEK, (Reported) FRIDAY Bacillus Coagulans (Bacid with Lactospore) 1 Each Capsule, 2 CAP PO [facility] Ergocalciferol (Vitamin D2) (Vitamin D2) 50,000 Units Cap, 50,000 UNIT PO QWEEK, (Reported) MONDAYS Magnesium Oxide (Magnesium) 400 Mg Capsule, 400 MG PO DAILY, (Reported) Polyethylene Glycol 3350 (Miralax) 119 Gm Powder, 17 GM PO DAILY, (Reported) Tobramycin Sulfate (Tobramycin Sulfate) 40 Mg/1 Ml Vial, 350 MG IV Q24H Vitamin B Complex (Vitamin B Complex) 1 Each Tablet, 1 TAB PO DAILY, (Reported) Scheduled PRN Ciprofloxacin HCl (Ciprofloxacin HCl) 250 Mg Tab, 125 MG PO DAILY PRN for UTI PREVENTION, (Reported) TAKE AFTER INTERCOURSE Allergies Coded Allergies: Sulfa (Sulfonamide Antibiotics) (Verified Allergy, Intermediate, rash, 07/23/19) cephalexin (Verified Allergy, Intermediate, rash, 07/23/19) nitrofurantoin (Verified Allergy, Intermediate, fever, 07/23/19) SIOMARA SHELTON MD August 04, 2019 06:36
== END 2019-07-26 13:17 | disposition home or self-care (01) | DRG 720 ==
LOC: M ED 10:40 → M ED INP 13:09 → M MSPAV 14:39
PROVIDERS: ADMIT General Practice; ATTEND General Practice
DX: A41.9 Sepsis, unspecified organism (principal); Q61.5 Medullary cystic kidney; N39.0 Urinary tract infection, site not specified; M81.0 Age-related osteoporosis without current pathological fracture; K58.8 Other irritable bowel syndrome; G47.00 Insomnia, unspecified; Z87.442 Personal history of urinary calculi; Z79.899 Other long term (current) drug therapy; Z88.2 Allergy status to sulfonamides; Z88.8 Allergy status to other drugs, medicaments and biological substances; B96.5 Pseudomonas (aeruginosa) (mallei) (pseudomallei) as the cause of diseases classified elsewhere

== ENCOUNTER → 2019-07-28 | Outpatient (CLI) | payer BC, OTHER ==
[~2019-07-28] MED LIST changes: +ALEN70TA74 PO; +BACI1CAP PO; +EQL50TAB2 PO; +LIDOCAINE 1% MDV 20ML VIAL As Ordered ONE; +MAGN400C2 PO; +MIRA3350 PO; +[UNRECOGNIZED DRUG - CODE] IV
[2019-07-28 15:10] VITALS: BP 130/77
--- NOTE | 2019-07-28 16:20 | REP ---
MIDLINE CATHETER INSERTION WITH SITE KARLADestiny The procedure was performed under the direct supervision of Dr. Kruse. The risks and benefits of the procedure were explained to the patient and informed consent was obtained. The left basilic vein was localized using ultrasound guidance. The skin was prepped and draped in a sterile fashion. 1% lidocaine was used as a local anesthetic. Using ultrasound guidance the basilic vein was cannulated and a 0.018 guidewire was inserted. The needle was removed and the 4.5 Afghan dilator and peel-away sheath was inserted over the guide wire. A 4.5 Afghan single-lumen catheter was left at a length of 16.5 cm. The dilator was removed and the catheter was inserted over the guide wire. The peel-away sheath was removed and the catheter was flushed with heparinized saline as per Hospital protocol. The catheter was affixed to the skin and a sterile dressing was applied. The patient tolerated the procedure well and there were no immediate complications. Electronically Signed by VICENTE Valentin 07/28/2019 03:39 P Electronically Signed by Gregory Kruse MD 07/28/2019 04:11 P
== END ==
LOC: M IRPRO 14:09
PROVIDERS: ATTEND Family Medicine
DX: N39.0 Urinary tract infection, site not specified (principal)
CPT/HCPCS: 36410; 76937; C1751; J1642

== ENCOUNTER → 2019-08-04 | Outpatient (REF) | payer BC, OTHER ==
[~2019-08-04] MED LIST changes: -LIDOCAINE 1% MDV 20ML VIAL As Ordered ONE
[2019-08-04 19:25] LABS: HEMATOCRIT 36.6 % (36.0-47.0); HEMOGLOBIN 12.3 g/dl (12.0-15.5); MEAN CORPUSCULAR HEMOGLOBIN 31.9 pg (27.0-33.0); MEAN CORPUSCULAR HGB CONC 33.6 g/dl (32.0-36.5); MEAN CORPUSCULAR VOLUME 94.8 fl (80.0-96.0); PLATELET COUNT, AUTOMATED 232 10^3/uL (150-450); RED BLOOD COUNT 3.86 10^6/uL (4.00-5.40); WHITE BLOOD COUNT 4.3 10^3/uL (4.0-10.0)
[2019-08-04 19:43] LABS: ALBUMIN 3.8 GM/DL (3.2-5.2); ALT/SGPT 29 U/L (12-78); BILIRUBIN,TOTAL 0.5 MG/DL (0.2-1.0); BLOOD UREA NITROGEN 9 MG/DL (7-18); C REACTIVE PROTEIN QUANTITATIV < 0.30 MG/DL (0.00-0.30); CALCIUM LEVEL 8.7 MG/DL (8.5-10.1); CARBON DIOXIDE LEVEL 30 MEQ/L (21-32); CHLORIDE LEVEL 103 MEQ/L (98-107); CREATININE FOR GFR 0.93 MG/DL (0.55-1.30); GLOMERULAR FILTRATION RATE > 60.0 (>51); GLUCOSE, FASTING 95 MG/DL (70-100); POTASSIUM SERUM 4.5 MEQ/L (3.5-5.1); SODIUM LEVEL 138 MEQ/L (136-145); TOTAL PROTEIN 7.6 GM/DL (6.4-8.2)
[2019-08-04 19:45] LABS: ERYTHROCYTE SEDIMENTATION RATE 26 mm/hr (0-30)
== END ==
LOC: M LAB 19:09
PROVIDERS: ATTEND Internal Medicine Infectious Disease
DX: N39.0 Urinary tract infection, site not specified (principal); N20.0 Calculus of kidney; Q61.5 Medullary cystic kidney; K58.8 Other irritable bowel syndrome

== ENCOUNTER → 2019-08-09 | Outpatient (CLI) | payer BC, OTHER ==
--- NOTE | 2019-08-10 05:04 | REP ---
Clinical: Flank pain. Technique: Axial noncontrast images from the lung bases to the pubic symphysis with coronal and sagittal re-formations. Comparison: 05/31/2010. Findings: The kidneys demonstrate chronic bilateral bulky nephroliths measuring up to approximately 13 mm along with elements of scarring (left greater than right) and scattered hypodensities suggesting simple and complex cysts. No acute perinephric stranding or hydroureteronephrosis is appreciated and no obvious obstructing ureteral calculi are identified. Few small calcifications in the pelvis likely represent phleboliths. Liver, spleen, pancreas, gallbladder, and bilateral adrenal glands are essentially normal for noncontrast evaluation. The enteric system suggests moderate fecal stasis and possible constipation. No bowel obstruction or acute enteric inflammatory process appreciated. Pelvis demonstrates normal bladder and age-appropriate uterus/adnexa. No ascites. No free air. No obvious adenopathy. Abdominal aorta without aneurysm. Musculoskeletal structures demonstrate age-related degenerative changes. Lung bases are clear. Pectus excavatum is suggested. Impression: 1. Bilateral nephroliths up to 13 mm along with chronic changes / scarring likely related to prior obstruction. Bilateral renal lesions likely representing simple and complex cysts. No acute perinephric stranding or hydroureteronephrosis appreciated. Electronically Signed by Gonzalo Polanco MD 08/10/2019 04:55 A
== END ==
LOC: M RAD 11:00
PROVIDERS: ATTEND Urology
DX: N20.0 Calculus of kidney (principal); N39.0 Urinary tract infection, site not specified

== ENCOUNTER → 2019-08-11 | Outpatient (REF) | payer BC, OTHER ==
[2019-08-11 19:06] LABS: HEMATOCRIT 38.6 % (36.0-47.0); HEMOGLOBIN 12.6 g/dl (12.0-15.5); MEAN CORPUSCULAR HGB CONC 32.6 g/dl (32.0-36.5); MEAN CORPUSCULAR VOLUME 94.8 fl (80.0-96.0); PLATELET COUNT, AUTOMATED 221 10^3/uL (150-450); RED BLOOD COUNT 4.07 10^6/uL (4.00-5.40); WHITE BLOOD COUNT 4.3 10^3/uL (4.0-10.0)
[2019-08-11 19:27] LABS: ERYTHROCYTE SEDIMENTATION RATE 16 mm/hr (0-30)
[2019-08-11 19:31] LABS: ALBUMIN 3.9 GM/DL (3.2-5.2); ALT/SGPT 27 U/L (12-78); BILIRUBIN,TOTAL 0.6 MG/DL (0.2-1.0); BLOOD UREA NITROGEN 9 MG/DL (7-18); C REACTIVE PROTEIN QUANTITATIV < 0.30 MG/DL (0.00-0.30); CALCIUM LEVEL 9.1 MG/DL (8.5-10.1); CARBON DIOXIDE LEVEL 30 MEQ/L (21-32); CHLORIDE LEVEL 101 MEQ/L (98-107); CREATININE FOR GFR 0.97 MG/DL (0.55-1.30); GLOMERULAR FILTRATION RATE > 60.0 (>51); GLUCOSE, FASTING 116 MG/DL (70-100); POTASSIUM SERUM 4.2 MEQ/L (3.5-5.1); SODIUM LEVEL 138 MEQ/L (136-145); TOTAL PROTEIN 7.8 GM/DL (6.4-8.2)
== END ==
LOC: M LAB REF 18:57
PROVIDERS: ATTEND Internal Medicine Infectious Disease
DX: N39.0 Urinary tract infection, site not specified (principal); N20.0 Calculus of kidney

== ENCOUNTER → 2019-08-25 | Outpatient (REF) | payer OTHER ==
[2019-08-25 17:55] LABS: ALBUMIN 3.4 GM/DL (3.2-5.2); ALT/SGPT 34 U/L (12-78); BILIRUBIN,TOTAL 0.3 MG/DL (0.2-1.0); BLOOD UREA NITROGEN 7 MG/DL (7-18); C REACTIVE PROTEIN QUANTITATIV 4.67 MG/DL (0.00-0.30); CALCIUM LEVEL 8.7 MG/DL (8.5-10.1); CARBON DIOXIDE LEVEL 28 MEQ/L (21-32); CHLORIDE LEVEL 105 MEQ/L (98-107); CREATININE FOR GFR 0.82 MG/DL (0.55-1.30); GLOMERULAR FILTRATION RATE > 60.0 (>51); GLUCOSE, FASTING 82 MG/DL (70-100); POTASSIUM SERUM 3.7 MEQ/L (3.5-5.1); SODIUM LEVEL 139 MEQ/L (136-145); TOTAL PROTEIN 7.7 GM/DL (6.4-8.2)
[2019-08-25 19:47] LABS: HEMATOCRIT 37.5 % (36.0-47.0); HEMOGLOBIN 12.2 g/dl (12.0-15.5); MEAN CORPUSCULAR HEMOGLOBIN 30.5 pg (27.0-33.0); MEAN CORPUSCULAR HGB CONC 32.5 g/dl (32.0-36.5); MEAN CORPUSCULAR VOLUME 93.8 fl (80.0-96.0); PLATELET COUNT, AUTOMATED 188 10^3/uL (150-450); WHITE BLOOD COUNT 4.8 10^3/uL (4.0-10.0)
[2019-08-25 20:16] LABS: ERYTHROCYTE SEDIMENTATION RATE 63 mm/hr (0-30)
== END ==
LOC: M SHH 14:50
PROVIDERS: ATTEND Internal Medicine Infectious Disease
DX: N39.0 Urinary tract infection, site not specified (principal); N20.0 Calculus of kidney; Q61.5 Medullary cystic kidney; K58.8 Other irritable bowel syndrome

== ENCOUNTER → 2019-09-01 | Outpatient (REF) | payer OTHER ==
[2019-09-01 19:17] LABS: BASO # 0.1 10^3/uL (0.0-0.2); BASO % 1.1 % (0.0-1.0); EOS # 0.1 10^3/uL (0.0-0.5); EOS % 1.6 % (0.0-3.0); HEMATOCRIT 35.1 % (36.0-47.0); HEMOGLOBIN 11.6 g/dl (12.0-15.5); MEAN CORPUSCULAR HEMOGLOBIN 30.7 pg (27.0-33.0); MEAN CORPUSCULAR VOLUME 92.9 fl (80.0-96.0); MONO # 0.3 10^3/uL (0.0-0.8); NEUTROPHILS % 53.9 % (36.0-66.0); PLATELET COUNT, AUTOMATED 408 10^3/uL (150-450); RED BLOOD COUNT 3.78 10^6/uL (4.00-5.40); WHITE BLOOD COUNT 5.5 10^3/uL (4.0-10.0)
[2019-09-01 19:35] LABS: ALBUMIN 3.6 GM/DL (3.2-5.2); ALT/SGPT 30 U/L (12-78); BILIRUBIN,TOTAL 0.6 MG/DL (0.2-1.0); BLOOD UREA NITROGEN 10 MG/DL (7-18); C REACTIVE PROTEIN QUANTITATIV 0.31 MG/DL (0.00-0.30); CALCIUM LEVEL 9.6 MG/DL (8.5-10.1); CARBON DIOXIDE LEVEL 27 MEQ/L (21-32); CHLORIDE LEVEL 103 MEQ/L (98-107); CREATININE FOR GFR 0.98 MG/DL (0.55-1.30); GLOMERULAR FILTRATION RATE > 60.0 (>51); GLUCOSE, FASTING 82 MG/DL (70-100); POTASSIUM SERUM 4.2 MEQ/L (3.5-5.1); SODIUM LEVEL 138 MEQ/L (136-145); TOTAL PROTEIN 8.2 GM/DL (6.4-8.2)
== END ==
LOC: M SHH 18:13
PROVIDERS: ATTEND Internal Medicine Infectious Disease
DX: B37.9 Candidiasis, unspecified (principal)

== ENCOUNTER → 2019-09-07 | Outpatient (REF) | payer OTHER ==
[2019-09-07 17:46] LABS: BASO # 0.1 10^3/uL (0.0-0.2); BASO % 1.2 % (0.0-1.0); EOS # 0.1 10^3/uL (0.0-0.5); EOS % 2.4 % (0.0-3.0); HEMATOCRIT 33.2 % (36.0-47.0); HEMOGLOBIN 10.9 g/dl (12.0-15.5); LYMPH # 1.6 10^3/uL (1.5-5.0); LYMPH % 39.5 % (24.0-44.0); MEAN CORPUSCULAR HEMOGLOBIN 30.4 pg (27.0-33.0); MEAN CORPUSCULAR HGB CONC 32.8 g/dl (32.0-36.5); MEAN CORPUSCULAR VOLUME 92.5 fl (80.0-96.0); MONO # 0.3 10^3/uL (0.0-0.8); MONO % 7.3 % (0.0-5.0); NEUTROPHILS % 49.6 % (36.0-66.0); PLATELET COUNT, AUTOMATED 299 10^3/uL (150-450); RED BLOOD COUNT 3.59 10^6/uL (4.00-5.40); WHITE BLOOD COUNT 4.1 10^3/uL (4.0-10.0)
[2019-09-07 18:04] LABS: ALBUMIN 3.4 GM/DL (3.2-5.2); BILIRUBIN,TOTAL 0.4 MG/DL (0.2-1.0); C REACTIVE PROTEIN QUANTITATIV 0.55 MG/DL (0.00-0.30); CALCIUM LEVEL 9.2 MG/DL (8.5-10.1); CREATININE FOR GFR 1.04 MG/DL (0.55-1.30); POTASSIUM SERUM 4.4 MEQ/L (3.5-5.1); TOTAL PROTEIN 7.5 GM/DL (6.4-8.2)
== END ==
LOC: M SHH 17:36
PROVIDERS: ATTEND Internal Medicine Infectious Disease
DX: B37.9 Candidiasis, unspecified (principal)

== ENCOUNTER → 2019-09-16 | Outpatient (REF) | payer OTHER ==
[2019-09-16 19:46] LABS: BASO % 0.9 % (0.0-1.0); EOS # 0.1 10^3/uL (0.0-0.5); EOS % 2.5 % (0.0-3.0); HEMATOCRIT 33.5 % (36.0-47.0); HEMOGLOBIN 10.9 g/dl (12.0-15.5); LYMPH # 2.1 10^3/uL (1.5-5.0); LYMPH % 46.4 % (24.0-44.0); MEAN CORPUSCULAR HEMOGLOBIN 30.5 pg (27.0-33.0); MEAN CORPUSCULAR HGB CONC 32.5 g/dl (32.0-36.5); MEAN CORPUSCULAR VOLUME 93.8 fl (80.0-96.0); MONO # 0.3 10^3/uL (0.0-0.8); MONO % 6.3 % (0.0-5.0); NEUTROPHILS % 43.7 % (36.0-66.0); PLATELET COUNT, AUTOMATED 212 10^3/uL (150-450); RED BLOOD COUNT 3.57 10^6/uL (4.00-5.40); WHITE BLOOD COUNT 4.5 10^3/uL (4.0-10.0)
[2019-09-16 20:05] LABS: ALBUMIN 3.6 GM/DL (3.2-5.2); ALT/SGPT 25 U/L (12-78); BILIRUBIN,TOTAL 0.5 MG/DL (0.2-1.0); BLOOD UREA NITROGEN 7 MG/DL (7-18); C REACTIVE PROTEIN QUANTITATIV < 0.30 MG/DL (0.00-0.30); CARBON DIOXIDE LEVEL 29 MEQ/L (21-32); CHLORIDE LEVEL 105 MEQ/L (98-107); GLOMERULAR FILTRATION RATE 55.3 (>51); GLUCOSE, FASTING 136 MG/DL (70-100); POTASSIUM SERUM 4.2 MEQ/L (3.5-5.1); SODIUM LEVEL 139 MEQ/L (136-145); TOTAL PROTEIN 7.6 GM/DL (6.4-8.2)
== END ==
LOC: M LAB REF 19:32
PROVIDERS: ATTEND Internal Medicine Infectious Disease
DX: B37.9 Candidiasis, unspecified (principal)

== ENCOUNTER → 2019-10-21 | Outpatient (CLI) | payer BC ==
--- NOTE | 2019-11-08 17:35 | REPMRS ---
Patient History The patient states she had a clinical breast exam in 10/2019. Patient is postmenopausal, has history of basal cell skin cancer at age 31, and had first child at age 34. No known family history of cancer. No Hormone Replacement Therapy Digital Woman Screen Mammo: October 21, 2019 - Exam #: [id number] Bilateral CC and MLO view(s) were taken. Technologist: Ami Tony, Technologist Prior study comparison: July 23, 2018, bilateral digital woman screen mammo performed at [facility]. July 17, 2017, digital woman screen mammo performed at [facility]. July 11, 2016, digital woman screen mammo performed at [facility]. FINDINGS: The breast tissue is extremely dense which could obscure a lesion on mammography. The Volpara volumetric breast density category is: D. There is an extremely dense symmetrical pattern of residual fibroglandular tissue. There has been no change in the appearance of the mammogram from the previous studies. There is no interval development of dominant mass, archetectural distortion, or grouped microcalcifications suggestive of malignancy. 3-D tomosynthesis shows no additional findings. Assessment: BI-RADS/ACR category 1 mammogram. Negative Mammogram. Recommendation Routine screening mammogram of both breasts in 1 year (for women over age 40). This patient's Lifetime Breast Cancer RIsk is estimated at 11.0 %. This mammogram was interpreted with the aid of an FDA-approved computer-aided dectection system. Electronically Signed By: Roberto Cheatham MD 11/08/19 1397
--- NOTE | 2019-11-30 15:26 | DEXA ---
AP SPINE L1 - L4 0.827 -3.0 -2.3 LT FEMUR TOTAL 0.758 -2.0 -1.4 LT NECK 0.782 -1.8 -0.9 RT FEMUR TOTAL 0.755 -2.0 -1.4 RT NECK 0.836 -1.5 -0.5 TOTAL BODY TOTAL OTHER COMMENTS: There is low bone density of the hips. There is osteoporosis of the spine. The density of the spine is decreased 3.2% since 07/17/2017. The density of the left hip has increased 1.3% since 07/17/2017. The density of the right hip has increased 4.9% since 07/17/2017. The the decreased density of the spine does represent a significant change. The increased density of the left hip does not represent significant change. The increased density of the right hip does represent significant change. FOLLOW-UP: Recommendation for the next bone density exam: 2 years. ISMAEL
== END ==
LOC: M WHC 06:12
PROVIDERS: ATTEND Family Medicine
DX: Z12.31 Encounter for screening mammogram for malignant neoplasm of breast (principal); M81.8 Other osteoporosis without current pathological fracture; Z78.0 Asymptomatic menopausal state; Z85.828 Personal history of other malignant neoplasm of skin

== ENCOUNTER → 2019-10-21 | Outpatient (REF) | payer OTHER | LOC: M SFHCADAM 08:39 | PROVIDERS: ATTEND Family Medicine | DX: M81.8 Other osteoporosis without current pathological fracture (principal); E55.9 Vitamin D deficiency, unspecified ==

== ENCOUNTER → 2019-10-21 | Outpatient (REF) | payer OTHER | LOC: M SFHCWAGY 12:27 | PROVIDERS: ATTEND Nurse Practitioner Women's Health | DX: Z12.4 Encounter for screening for malignant neoplasm of cervix (principal) ==

== ENCOUNTER → 2019-10-27 | Outpatient (CLI) | payer BC, OTHER ==
--- NOTE | 2019-11-30 11:22 | REP ---
RIGHT HIP: AP AND LATERAL VIEWS REASON FOR EXAMINATION: Hip pain. FINDINGS: The acetabulum is somewhat shallow. There is mild loss of bony trabeculae in the superior lateral femoral head, which is slightly misshapen. There is mild femoral head flattening. There is no acute fracture, dislocation or subluxation. There is no buttressing. IMPRESSION: Chronic-appearing right hip changes as described above. Since the patient has atraumatic pain, consider follow up with MRI. I will reiterate that there are no priors for comparison. MTDD
== END ==
LOC: M ADAMS 16:20
PROVIDERS: ATTEND Family Medicine
DX: M25.551 Pain in right hip (principal)

== ENCOUNTER 2019-11-10 18:38 | Emergency (ER) | payer BC, OTHER ==
[~2019-11-10] VITALS: Ht 180.3 cm; Wt 65.5 kg
[2019-11-10 18:38] VITALS: BP 143/77
[2019-11-10] MEDS ORDERED: ACETAMINOPHEN TAB 650MG DOSE (2X325MG) PO ONE (19:15)
[2019-11-10 19:27] LABS: BASO % 0.5 % (0.0-1.0); EOS # 0.1 10^3/uL (0.0-0.5); EOS % 1.7 % (0.0-3.0); HEMATOCRIT 36.8 % (36.0-47.0); HEMOGLOBIN 11.8 g/dl (12.0-15.5); LYMPH # 1.5 10^3/uL (1.5-5.0); LYMPH % 35.1 % (24.0-44.0); MEAN CORPUSCULAR HEMOGLOBIN 31.4 pg (27.0-33.0); MEAN CORPUSCULAR HGB CONC 32.1 g/dl (32.0-36.5); MEAN CORPUSCULAR VOLUME 97.9 fl (80.0-96.0); MONO # 0.3 10^3/uL (0.0-0.8); MONO % 7.2 % (0.0-5.0); NEUTROPHILS # 2.3 10^3/uL (1.5-8.5); PLATELET COUNT, AUTOMATED 206 10^3/uL (150-450); RED BLOOD COUNT 3.76 10^6/uL (4.00-5.40); WHITE BLOOD COUNT 4.2 10^3/uL (4.0-10.0)
[2019-11-10] MEDS ORDERED: NEOSPORIN TOP OINT 15GM TOP ONE (19:30)
[2019-11-10 19:39] LABS: INR 0.96
[2019-11-10 19:40] LABS: PARTIAL THROMBOPLASTIN TIME 27.7 SECONDS (25.0-38.4)
[2019-11-10 19:51] LABS: BLOOD UREA NITROGEN 8 MG/DL (7-18); CALCIUM LEVEL 9.3 MG/DL (8.5-10.1); CARBON DIOXIDE LEVEL 28 MEQ/L (21-32); CHLORIDE LEVEL 106 MEQ/L (98-107); CK-MB VALUE MASS 1.9 NG/ML (<3.6); CPK CREATINE PHOSPHOKINASE 164 U/L (26-192); CREATININE FOR GFR 1.07 MG/DL (0.55-1.30); GLOMERULAR FILTRATION RATE 57.1 (>51); GLUCOSE, FASTING 96 MG/DL (70-100); MB/CK RELATIVE INDEX 1.16 (< OR =4); SODIUM LEVEL 140 MEQ/L (136-145); TROPONIN I < 0.02 NG/ML (< 0.10)
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
--- NOTE | 2019-11-22 11:54 | ECGEPIP ---
[facility] - ED Test Date: 2019-11-10 Pat Name: NAI MAYER Department: Room: - Gender: Female Title Attorney: MJ : 1965 Requested By: ADY Granda Order Number: [id number] Reading MD: Angle Lou Measurements Intervals [place] Rate: 85 P: 81 NC: 162 QRS: 13 QRSD: 93 T: -3 QT: 359 QTc: 427 Interpretive Statements SINUS RHYTHM POSSIBLE LEFT ATRIAL ENLARGEMENT BORDERLINE ECG SEE SCANNED DOWNTIME REPORT
== END 2019-11-10 20:47 | disposition home or self-care (01) ==
LOC: M ED 18:38
DX: S09.90XA Unspecified injury of head, initial encounter (principal); S00.511A Abrasion of lip, initial encounter; S80.211A Abrasion, right knee, initial encounter; S80.212A Abrasion, left knee, initial encounter; V18.0XXA Pedal cycle driver injured in noncollision transport accident in nontraffic accident, initial encounter; Y93.9 Activity, unspecified; Y92.9 Unspecified place or not applicable; Y99.9 Unspecified external cause status

== ENCOUNTER → 2020-04-24 | Outpatient (REF) | payer OTHER ==
[~2020-04-24] MED LIST changes: -ALEN70TA74 PO; +ALEN70TA82 PO
== END ==
LOC: M LAB REF 17:20
PROVIDERS: ATTEND Internal Medicine Nephrology
DX: N39.0 Urinary tract infection, site not specified (principal)

== ENCOUNTER → 2020-05-02 | Outpatient (CLI) | payer BC, OTHER ==
--- NOTE | 2020-05-02 08:19 | REP ---
INDICATION: CYSTIC KIDNEY. COMPARISON: CT 08/09/2019, ultrasound 07/23/2019, 11/27/2018. TECHNIQUE: Standard renal sonographic evaluation bilaterally. FINDINGS: The right kidney is 9.5 by 5.4 x 4 cm. The left kidney is 10.5 x 5 x 5.2 cm. Cortical echogenicity is less than that of the adjacent liver. There again noted to be multiple echogenic foci in each kidney prominently in the pyramids the largest on the right is 11 mm at the interpolar lower pole junction. On the left largest is 16 mm in the upper pole on 12 mm in lower pole. Normal color flow to the kidneys. There was no hydronephrosis or hydroureter. Appears be a small cortical cyst in lower pole the left kidney about 10 mm. No perinephric fluid. The bladder shows symmetric bilateral vigorous ureteral jet phenomenon. There is some echogenic debris seen layering in the bladder. IMPRESSION: 1. Bilateral nephrolithiasis with the calcifications almost all in the pyramids and representing medullary nephrocalcinosis. I do not see hydronephrosis or hydroureter. Only 1 small cyst seen in the lower pole left kidney. No solid cysts masses. Shadowing from stones may obscure other cysts. 2. Vigorous bilateral ureteral jets with some small layering echogenic debris in the bladder. Overall stable exam. <Electronically signed by Pablo Portillo > 05/02/20 [id number]
== END ==
LOC: M RAD 07:03
PROVIDERS: ATTEND Internal Medicine Nephrology
DX: Q61.5 Medullary cystic kidney (principal)

== ENCOUNTER → 2020-05-26 | Outpatient (CLI) | payer OTHER, BC ==
[2020-05-26 10:16] LABS: HEMOGLOBIN 13.1 g/dl (12.0-15.5); MEAN CORPUSCULAR HEMOGLOBIN 31.1 pg (27.0-33.0); MEAN CORPUSCULAR VOLUME 97.4 fl (80.0-96.0); PLATELET COUNT, AUTOMATED 191 10^3/uL (150-450); RED BLOOD COUNT 4.21 10^6/uL (4.00-5.40); WHITE BLOOD COUNT 3.6 10^3/uL (4.0-10.0)
[2020-05-26 10:53] LABS: ALBUMIN 4.2 GM/DL (3.2-5.2); BILIRUBIN,TOTAL 0.5 MG/DL (0.2-1.0); CALCIUM LEVEL 9.6 MG/DL (8.5-10.1); CREATININE FOR GFR 1.12 MG/DL (0.55-1.30); FREE T4 0.81 NG/DL (0.76-1.46); MAGNESIUM LEVEL 2.2 MG/DL (1.8-2.4); POTASSIUM SERUM 4.5 MEQ/L (3.5-5.1); THYROID STIMULATING HORMONE 1.69 uIU/ML (0.358-3.740); TOTAL PROTEIN 7.9 GM/DL (6.4-8.2)
== END ==
LOC: M WUC 08:07
PROVIDERS: ATTEND Family Medicine
DX: R00.2 Palpitations (principal)

== ENCOUNTER 2020-09-12 12:35 | Outpatient (CLI) | payer OTHER, BC ==
[~2020-09-12] VITALS: Ht 180.3 cm; Wt 66.8 kg
[~2020-09-12 12:35] MED LIST changes: -FOSA70TA PO
[2020-09-12 12:57] VITALS: BP 124/60
[2020-09-12] MEDS: MEROPENEM INJ 1 GM in IV 1 EA IV SCH ×2 (13:07→13:40)
[2020-09-12 14:11] VITALS: BP 107/66
[2020-09-13] MEDS ORDERED: FOSA70TA PO (15:25)
== END 2020-09-12 14:35 | disposition home or self-care (01) ==
LOC: M INFU 12:35
PROVIDERS: ATTEND Internal Medicine Infectious Disease
DX: A49.8 Other bacterial infections of unspecified site (principal); Z88.1 Allergy status to other antibiotic agents; Z88.2 Allergy status to sulfonamides
CPT/HCPCS: 96365; J2185

== ENCOUNTER → 2020-09-12 | Outpatient (CLI) | payer OTHER, BC ==
[~2020-09-12] MED LIST changes: +ERGO500029 PO; +FOSA70TA PO
[2020-09-12 13:07] LABS: BASO % 0.6 % (0.0-1.0); EOS % 0.2 % (0.0-3.0); HEMATOCRIT 41.1 % (36.0-47.0); LYMPH # 1.1 10^3/uL (1.5-5.0); LYMPH % 20.3 % (24.0-44.0); MEAN CORPUSCULAR HGB CONC 31.6 g/dl (32.0-36.5); MEAN CORPUSCULAR VOLUME 98.1 fl (80.0-96.0); MONO # 0.6 10^3/uL (0.0-0.8); MONO % 11.2 % (2.0-8.0); NEUTROPHILS # 3.5 10^3/uL (1.5-8.5); NEUTROPHILS % 67.5 % (36.0-66.0); PLATELET COUNT, AUTOMATED 173 10^3/uL (150-450); RED BLOOD COUNT 4.19 10^6/uL (4.00-5.40); WHITE BLOOD COUNT 5.2 10^3/uL (4.0-10.0)
[2020-09-12 13:09] LABS: APPEARANCE, URINE CLOUDY (CLEAR); BACTERIA, URINE AUTO 1+ (NEGATIVE); BILIRUBIN, URINE AUTO NEGATIVE (NEGATIVE); BLOOD, URINE BLOOD 1+ (NEGATIVE); COLOR, URINE YELLOW (YELLOW); GLUCOSE, URINE (UA) AUTO NEGATIVE (NEGATIVE); KETONE, URINE AUTO NEGATIVE (NEGATIVE); LEUKOCYTE ESTERASE, URINE AUTO 3+ (NEGATIVE); NITRITE, URINE AUTO NEGATIVE (NEGATIVE); PROTEIN, URINE AUTO NEGATIVE (NEGATIVE); RBC, URINE AUTO 2 /HPF (0-3); SPECIFIC GRAVITY URINE AUTO 1.004 (1.002-1.035); SQUAMOUS EPITHELIAL CELL UR AU 0 /HPF (0-6); UROBILINOGEN, URINE AUTO 0.2 mg/dL (0.0-2.0); WBC, URINE AUTO 25 /HPF (0-3)
[2020-09-12 13:36] LABS: ALBUMIN 3.8 GM/DL (3.2-5.2); ALT/SGPT 37 U/L (12-78); BILIRUBIN,TOTAL 0.8 MG/DL (0.2-1.0); BLOOD UREA NITROGEN 8 MG/DL (7-18); CALCIUM LEVEL 9.1 MG/DL (8.5-10.1); CARBON DIOXIDE LEVEL 27 MEQ/L (21-32); CHLORIDE LEVEL 105 MEQ/L (98-107); CREATININE FOR GFR 0.87 MG/DL (0.55-1.30); GLOMERULAR FILTRATION RATE > 60.0 (>51); GLUCOSE, FASTING 93 MG/DL (70-100); POTASSIUM SERUM 4.1 MEQ/L (3.5-5.1); SODIUM LEVEL 137 MEQ/L (136-145); TOTAL PROTEIN 7.3 GM/DL (6.4-8.2)
[2020-09-12 13:43] LABS: APPEARANCE, URINE HAZY (CLEAR); BACTERIA, URINE AUTO 1+ (NEGATIVE); BILIRUBIN, URINE AUTO NEGATIVE (NEGATIVE); BLOOD, URINE BLOOD 2+ (NEGATIVE); COLOR, URINE YELLOW (YELLOW); GLUCOSE, URINE (UA) AUTO NEGATIVE (NEGATIVE); KETONE, URINE AUTO NEGATIVE (NEGATIVE); LEUKOCYTE ESTERASE, URINE AUTO 3+ (NEGATIVE); MUCUS, URINE SMALL (NEGATIVE); NITRITE, URINE AUTO NEGATIVE (NEGATIVE); PROTEIN, URINE AUTO NEGATIVE (NEGATIVE); RBC, URINE AUTO 4 /HPF (0-3); SPECIFIC GRAVITY URINE AUTO 1.003 (1.002-1.035); SQUAMOUS EPITHELIAL CELL UR AU 0 /HPF (0-6); UROBILINOGEN, URINE AUTO 0.2 mg/dL (0.0-2.0); WBC, URINE AUTO 24 /HPF (0-3)
[2020-09-13 17:07] LABS: Lyme Disease IgG/IgM Antibodie <0.91 ISR (0.00-0.90); Lyme Disease IgM Ab Quantitati <0.80 index (0.00-0.79)
== END ==
LOC: M LAB 11:08
PROVIDERS: ATTEND Internal Medicine Infectious Disease
DX: A49.8 Other bacterial infections of unspecified site (principal); R50.9 Fever, unspecified

== ENCOUNTER 2020-09-13 14:30 | Outpatient (CLI) | payer BC, OTHER ==
[~2020-09-13] VITALS: Ht 180.3 cm; Wt 66.8 kg
[2020-09-13 14:35] VITALS: BP 117/62
[2020-09-13] MEDS: MEROPENEM INJ 1 GM in IV 1 EA IV SCH ×2 (15:07→15:34)
[2020-09-13] MEDS ORDERED: FOSA70TA PO (15:25)
[2020-09-13 16:14] VITALS: BP 113/67
== END 2020-09-13 16:15 | disposition home or self-care (01) ==
LOC: M INFU 14:30
PROVIDERS: ATTEND Internal Medicine Infectious Disease
DX: A49.8 Other bacterial infections of unspecified site (principal); Q61.5 Medullary cystic kidney; Z88.1 Allergy status to other antibiotic agents; Z88.2 Allergy status to sulfonamides
CPT/HCPCS: 96365; J2185

== ENCOUNTER → 2020-09-22 | Outpatient (CLI) | payer BC, OTHER ==
[~2020-09-22] MED LIST changes: +FOSA70TA PO
--- NOTE | 2020-09-22 14:54 | REP ---
INDICATION: RENAL STONES W/ KIDNEY INFECTION COMPARISON: Comparison CT study is from August 09, 2019.. TECHNIQUE: Helical scanning is acquired and 3 mm axial images were reformatted. Coronal and sagittal MPR images were generated and reviewed. 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 Bowel gas pattern is unremarkable. The lung bases are clear. There is a pectus excavatum deformity. There is no evidence of pleural effusion or upper abdominal ascites. On axial CT images, the liver and spleen are normal in size homogeneous in texture as before. No pancreatic abnormality is seen. The gallbladder is unremarkable. The adrenals are unremarkable. There is pattern of numerous intrarenal calculi bilaterally suggesting medullary sponge kidney with numerous bilateral intrarenal nephrolithiasis. There is no evidence hydronephrosis on either side. No ureteral calculus or bladder calculus is seen. There are small bilateral renal cortical cysts. No perinephric disease is appreciated. Small and large bowel loops are unremarkable. There are sutures in the central abdomen related to previous small bowel surgery. The appendix is surgically absent. The uterus is displaced posteriorly by stool in the cecum but intact. No adnexal abnormality is seen. IMPRESSION: Numerous large intrarenal calculi in each kidney as noted previously consistent with medullary sponge kidney. The largest calculus is in the right kidney measuring 1.3 cm. No hydronephrosis or ureteral stone. No bladder calculus seen. Moderate stool. Otherwise negative. <Electronically signed by Roberto Cheatham > 09/22/20 [id number]
== END ==
LOC: M PLAIMG 12:25
PROVIDERS: ATTEND Internal Medicine Infectious Disease
DX: N20.0 Calculus of kidney (principal)

== ENCOUNTER → 2020-10-20 | Outpatient (REF) | payer OTHER | LOC: M SFHCADAM 08:55 | PROVIDERS: ATTEND Family Medicine | DX: R41.3 Other amnesia (principal); E55.9 Vitamin D deficiency, unspecified; N20.2 Calculus of kidney with calculus of ureter; M81.8 Other osteoporosis without current pathological fracture; Z53.8 Procedure and treatment not carried out for other reasons ==

== ENCOUNTER → 2020-10-24 | Outpatient (CLI) | payer OTHER ==
[2020-10-24 10:33] LABS: FOLATE > 24.0 NG/ML (>5.4); TOTAL 25(OH) VITAMIN D 36.2 NG/ML (30.0-100.0); VITAMIN B12 LEVEL 842 PG/ML (247-911)
== END ==
LOC: M WUC 08:20
PROVIDERS: ATTEND Family Medicine
DX: R41.3 Other amnesia (principal); M81.8 Other osteoporosis without current pathological fracture; E55.9 Vitamin D deficiency, unspecified; N20.2 Calculus of kidney with calculus of ureter

== ENCOUNTER → 2020-11-08 | Outpatient (REF) | payer OTHER | LOC: M SFHCWAGY 12:58 | PROVIDERS: ATTEND Nurse Practitioner Women's Health | DX: Z12.4 Encounter for screening for malignant neoplasm of cervix (principal) ==

== ENCOUNTER → 2020-11-08 | Outpatient (CLI) | payer BC, OTHER ==
--- NOTE | 2020-11-08 08:45 | REPMRS ---
Patient History The patient states she had a clinical breast exam in November 2020. Patient is postmenopausal, has history of other cancer at age 54, and had first child at age 34. No known family history of cancer. No Hormone Replacement Therapy Patient states no breast complaints today. Patient has signed MRS History Sheet. Digital Woman Screen Mammo: November 08, 2020 - Exam #: [id number] Bilateral CC and MLO view(s) were taken. Technologist: Xuan Vazquez, Technologist Prior study comparison: October 21, 2019, bilateral digital woman screen mammo performed at [facility], [place]. July 23, 2018, bilateral digital woman screen mammo performed at [facility]. July 17, 2017, digital woman screen mammo performed at [facility]. FINDINGS: The breast tissue is extremely dense which could obscure a lesion on mammography. The [facility] volumetric breast density category is: D. There is an extremely dense symmetrical pattern of residual fibroglandular tissue. There has been no change in the appearance of the mammogram from the previous studies. There is no interval development of dominant mass, archetectural distortion, or grouped microcalcifications suggestive of malignancy. 3-D tomosynthesis shows no additional findings. Assessment: BI-RADS/ACR category 1 mammogram. Negative Mammogram. Recommendation Routine screening mammogram of both breasts in 1 year (for women over age 40). This patient's [facility] Lifetime Breast Cancer RIsk is estimated at 10.8 %. This mammogram was interpreted with the aid of an FDA-approved computer-aided dectection system. Electronically Signed By: Roberto Cheatham MD 11/08/20 [id number]
== END ==
LOC: M WHC 07:23
PROVIDERS: ATTEND Nurse Practitioner Women's Health
DX: Z12.31 Encounter for screening mammogram for malignant neoplasm of breast (principal); Z78.0 Asymptomatic menopausal state

== ENCOUNTER → 2020-11-10 | Outpatient (REF) | payer OTHER | LOC: M LAB REF 13:20 | PROVIDERS: ATTEND Internal Medicine Nephrology | DX: Q61.5 Medullary cystic kidney (principal) ==

== ENCOUNTER → 2021-10-23 | Outpatient (REF) | payer OTHER | LOC: M WUC 16:16 | PROVIDERS: ATTEND Student in an Organized Health Care Education/Training Program | DX: R30.0 Dysuria (principal) ==

== ENCOUNTER → 2021-11-26 | Outpatient (REF) | payer OTHER ==
[~2021-11-26] MED LIST changes: +ALEN70TA87 PO; -FOSA70TA PO
[2021-11-26 15:16] LABS: APPEARANCE, URINE MANUAL HAZY (CLEAR); COLOR, URINE MANUAL YELLOW (YELLOW)
[2021-11-26 15:17] LABS: SPECIFIC GRAVITY,URINE MANUAL 1.005 (1.002-1.035)
[2021-11-26 15:18] LABS: BILIRUBIN, URINE MANUAL NEGATIVE (NEGATIVE); BLOOD URINE MANUAL POSITIVE (NEGATIVE); GLUCOSE, URINE (UA) MANUAL NEGATIVE (NEGATIVE); KETONE, URINE MANUAL NEGATIVE (NEGATIVE); LEUKOCYTE ESTERASE, URINE MAN POSITIVE (NEGATIVE); NITRITE, URINE MANUAL POSITIVE (NEGATIVE); PROTEIN, URINE MANUAL 1+ mg/dL (NEGATIVE); UROBILINOGEN, URINE MANUAL NORMAL (NORMAL)
[2021-11-26 15:25] LABS: WBC, URINE TNTC /hpf (0-3)
[2021-11-26 15:26] LABS: BACTERIA, URINE LARGE AMOUNT; HYALINE CAST, URINE NONE SEEN /lpf (0-1); SQUAMOUS EPITHELIAL CELL URINE SMALL AMOUNT /hpf (SMALL AMT)
== END ==
LOC: M SFHCPLAZ 14:42
PROVIDERS: ATTEND Internal Medicine Infectious Disease
DX: N39.0 Urinary tract infection, site not specified (principal)

== ENCOUNTER → 2021-12-20 | Outpatient (REF) | payer OTHER ==
[2021-12-20 10:35] LABS: APPEARANCE, URINE MANUAL HAZY (CLEAR); COLOR, URINE MANUAL LT YELLOW (YELLOW)
[2021-12-20 10:36] LABS: BILIRUBIN, URINE MANUAL NEGATIVE (NEGATIVE); BLOOD URINE MANUAL POSITIVE (NEGATIVE); GLUCOSE, URINE (UA) MANUAL NEGATIVE (NEGATIVE); KETONE, URINE MANUAL NEGATIVE (NEGATIVE); LEUKOCYTE ESTERASE, URINE MAN POSITIVE (NEGATIVE); NITRITE, URINE MANUAL NEGATIVE (NEGATIVE); PROTEIN, URINE MANUAL TRACE mg/dL (NEGATIVE); SPECIFIC GRAVITY,URINE MANUAL 1.005 (1.002-1.035); UROBILINOGEN, URINE MANUAL NORMAL (NORMAL)
[2021-12-20 10:43] LABS: BACTERIA, URINE LARGE AMOUNT; WBC, URINE TNTC /hpf (0-3)
[2021-12-20 10:44] LABS: AMORPHOUS SEDIMENT, URINE SMALL AMOUNT (NEGATIVE); HYALINE CAST, URINE NONE SEEN /lpf (0-1); SQUAMOUS EPITHELIAL CELL URINE MOD AMOUNT /hpf (SMALL AMT)
[2021-12-20 10:45] LABS: MUCUS, URINE SMALL AMOUNT (NEGATIVE)
== END ==
LOC: M SFHCPLAZ 10:06
PROVIDERS: ATTEND Internal Medicine Infectious Disease
DX: N39.0 Urinary tract infection, site not specified (principal)

== ENCOUNTER → 2021-12-28 | Outpatient (CLI) | payer OTHER ==
[2021-12-28 13:06] LABS: BASO % 0.8 % (0.0-1.0); EOS # 0.1 10^3/uL (0.0-0.5); EOS % 2.3 % (0.0-3.0); HEMATOCRIT 39.7 % (36.0-47.0); HEMOGLOBIN 12.4 g/dl (12.0-15.5); LYMPH # 1.4 10^3/uL (1.5-5.0); LYMPH % 35.3 % (24.0-44.0); MEAN CORPUSCULAR HEMOGLOBIN 31.2 pg (27.0-33.0); MEAN CORPUSCULAR HGB CONC 31.2 g/dl (32.0-36.5); MONO # 0.3 10^3/uL (0.0-0.8); MONO % 8.8 % (2.0-8.0); NEUTROPHILS % 52.5 % (36.0-66.0); PLATELET COUNT, AUTOMATED 262 10^3/uL (150-450); RED BLOOD COUNT 3.97 10^6/uL (4.00-5.40); WHITE BLOOD COUNT 3.9 10^3/uL (4.0-10.0)
[2021-12-28 14:06] LABS: ALBUMIN 3.5 GM/DL (3.2-5.2); BILIRUBIN,TOTAL 0.4 MG/DL (0.2-1.0); C REACTIVE PROTEIN QUANTITATIV 0.3 MG/DL (0.00-0.30); CALCIUM LEVEL 9.4 MG/DL (8.5-10.1); CREATININE FOR GFR 1.05 MG/DL (0.55-1.30); GLOMERULAR FILTRATION RATE 57.7 (>51); POTASSIUM SERUM 4.5 MEQ/L (3.5-5.1); TOTAL PROTEIN 7.3 GM/DL (6.4-8.2)
== END ==
LOC: M WUC 09:10
PROVIDERS: ATTEND Internal Medicine Infectious Disease
DX: N39.0 Urinary tract infection, site not specified (principal)

== ENCOUNTER → 2022-01-17 | Outpatient (CLI) | payer OTHER ==
[2022-01-17 12:13] LABS: APPEARANCE, URINE MANUAL CLEAR (CLEAR); BILIRUBIN, URINE MANUAL NEGATIVE (NEGATIVE); BLOOD URINE MANUAL POSITIVE (NEGATIVE); COLOR, URINE MANUAL YELLOW (YELLOW); GLUCOSE, URINE (UA) MANUAL NEGATIVE (NEGATIVE); KETONE, URINE MANUAL NEGATIVE (NEGATIVE); LEUKOCYTE ESTERASE, URINE MAN POSITIVE (NEGATIVE); NITRITE, URINE MANUAL POSITIVE (NEGATIVE); PROTEIN, URINE MANUAL TRACE mg/dL (NEGATIVE); UROBILINOGEN, URINE MANUAL NORMAL (NORMAL)
[2022-01-17 12:56] LABS: WBC, URINE 15-20 /hpf (0-3)
[2022-01-17 12:57] LABS: AMORPHOUS SEDIMENT, URINE SMALL AMOUNT (NEGATIVE); BACTERIA, URINE MOD AMOUNT; HYALINE CAST, URINE NONE SEEN /lpf (0-1); SQUAMOUS EPITHELIAL CELL URINE SMALL AMOUNT /hpf (SMALL AMT)
== END ==
LOC: M WUC 09:33
PROVIDERS: ATTEND Internal Medicine Infectious Disease
DX: N39.0 Urinary tract infection, site not specified (principal)

== ENCOUNTER → 2022-01-24 | Outpatient (CLI) | payer BC, OTHER | LOC: M WHC 08:15 | PROVIDERS: ATTEND Advanced Practice Midwife | DX: Z12.31 Encounter for screening mammogram for malignant neoplasm of breast (principal); M81.0 Age-related osteoporosis without current pathological fracture; M85.851 Other specified disorders of bone density and structure, right thigh; M85.852 Other specified disorders of bone density and structure, left thigh ==

== ENCOUNTER → 2022-04-11 | Outpatient (CLI) | payer BC, OTHER ==
[2022-04-11 12:38] LABS: BLOOD UREA NITROGEN 11 MG/DL (9-23); CALCIUM LEVEL 9.3 MG/DL (8.5-10.1); CARBON DIOXIDE LEVEL 32 MMOL/L (20-31); CHLORIDE LEVEL 103 MMOL/L (98-107); CREATININE FOR GFR 0.95 MG/DL (0.55-1.30); GLOMERULAR FILTRATION RATE > 60.0 (>51); GLUCOSE, FASTING 88 MG/DL (60-100); POTASSIUM SERUM 4.3 MMOL/L (3.5-5.1); SODIUM LEVEL 140 MMOL/L (136-145)
[2022-04-11 12:44] LABS: TOTAL 25(OH) VITAMIN D 53.9 NG/ML (20.0-100.0)
[2022-04-11 12:45] LABS: TESTOSTERONE 33 NG/DL (14-76)
== END ==
LOC: M WUC 09:26
PROVIDERS: ATTEND Internal Medicine Endocrinology, Diabetes & Metabolism
DX: E55.9 Vitamin D deficiency, unspecified (principal); L68.0 Hirsutism

== ENCOUNTER → 2022-06-18 | Outpatient (CLI) | payer BC, OTHER | LOC: M RAD 07:59 | PROVIDERS: ATTEND Urology | DX: N20.0 Calculus of kidney (principal) ==

== ENCOUNTER → 2022-06-20 | Outpatient (REF) | payer BC, OTHER ==
[2022-06-20 11:26] LABS: APPEARANCE, URINE HAZY (CLEAR); BACTERIA, URINE AUTO 3+ (NEGATIVE); BILIRUBIN, URINE AUTO NEGATIVE (NEGATIVE); BLOOD, URINE BLOOD 2+ (NEGATIVE); COLOR, URINE YELLOW (YELLOW); GLUCOSE, URINE (UA) AUTO NEGATIVE (NEGATIVE); KETONE, URINE AUTO NEGATIVE (NEGATIVE); LEUKOCYTE ESTERASE, URINE AUTO 3+ (NEGATIVE); MUCUS, URINE SMALL (NEGATIVE); NITRITE, URINE AUTO POSITIVE (NEGATIVE); PROTEIN, URINE AUTO NEGATIVE (NEGATIVE); RBC, URINE AUTO 10 /HPF (0-3); SPECIFIC GRAVITY URINE AUTO 1.004 (1.002-1.035); SQUAMOUS EPITHELIAL CELL UR AU 1 /HPF (0-6); UROBILINOGEN, URINE AUTO 0.2 mg/dL (0.0-2.0); WBC, URINE AUTO 27 /HPF (0-3)
== END ==
LOC: M SFHCPLAZ 10:40
PROVIDERS: ATTEND Internal Medicine Infectious Disease
DX: N39.0 Urinary tract infection, site not specified (principal)

== ENCOUNTER 2022-06-28 12:33 | Outpatient (CLI) | payer BC, OTHER ==
[~2022-06-28 12:33] MED LIST changes: -CEFEPIME HCL 2 GM in D5W MINI-BAG PLUS 50 ML IV ONE; -CEFEPIME HCL 2 GM in D5W MINI-BAG PLUS 50 ML IV SCH; -LIDOCAINE 1% MDV 20ML VIAL As Ordered ONE
[2022-06-28 13:40] VITALS: BP 122/64
[2022-06-28] MEDS ORDERED: CEFEPIME HCL 2 GM in D5W MINI-BAG PLUS 50 ML IV ONE (14:10)
[2022-06-28 14:30] VITALS: BP 118/67
== END 2022-06-28 14:30 ==
LOC: M INFU 12:33
PROVIDERS: ATTEND Internal Medicine Infectious Disease
DX: N10 Acute pyelonephritis (principal); Z88.2 Allergy status to sulfonamides; Z88.1 Allergy status to other antibiotic agents; Z88.8 Allergy status to other drugs, medicaments and biological substances
CPT/HCPCS: 96365; J0692

== ENCOUNTER → 2022-06-28 | Outpatient (CLI) | payer BC, OTHER ==
[~2022-06-28] MED LIST changes: +CEFEPIME HCL 2 GM in D5W MINI-BAG PLUS 50 ML IV ONE; +CEFEPIME HCL 2 GM in D5W MINI-BAG PLUS 50 ML IV SCH; +LIDOCAINE 1% MDV 20ML VIAL As Ordered ONE
[2022-06-28 12:45] VITALS: BP 124/73
[2022-06-28 14:15] LABS: BASO % 0.4 % (0.0-1.0); EOS % 0.1 % (0.0-3.0); HEMATOCRIT 35.7 % (36.0-47.0); HEMOGLOBIN 11.4 g/dl (12.0-15.5); LYMPH # 1.6 10^3/uL (1.5-5.0); LYMPH % 22.1 % (24.0-44.0); MEAN CORPUSCULAR HEMOGLOBIN 31.2 pg (27.0-33.0); MEAN CORPUSCULAR HGB CONC 31.9 g/dl (32.0-36.5); MEAN CORPUSCULAR VOLUME 97.8 fl (80.0-96.0); MONO # 0.8 10^3/uL (0.0-0.8); MONO % 11.6 % (2.0-8.0); NEUTROPHILS # 4.6 10^3/uL (1.5-8.5); NEUTROPHILS % 65.5 % (36.0-66.0); PLATELET COUNT, AUTOMATED 165 10^3/uL (150-450); RED BLOOD COUNT 3.65 10^6/uL (4.00-5.40); WHITE BLOOD COUNT 7.1 10^3/uL (4.0-10.0)
[2022-06-28 14:38] LABS: ALBUMIN 3.4 G/DL (3.2-5.2); ALKALINE PHOSPHATASE 51 U/L (46-116); ALT/SGPT 16 U/L (7.0-40); AST/SGOT 17 U/L (<34); BILIRUBIN,TOTAL 0.9 MG/DL (0.3-1.2); BLOOD UREA NITROGEN 11 MG/DL (9-23); CALCIUM LEVEL 8.2 MG/DL (8.5-10.1); CARBON DIOXIDE LEVEL 27 MMOL/L (20-31); CHLORIDE LEVEL 104 MMOL/L (98-107); CREATININE FOR GFR 0.85 MG/DL (0.55-1.30); GLOMERULAR FILTRATION RATE > 60.0 (>51); GLUCOSE, FASTING 85 MG/DL (60-100); POTASSIUM SERUM 3.8 MMOL/L (3.5-5.1); SODIUM LEVEL 141 MMOL/L (136-145); TOTAL PROTEIN 6.4 G/DL (5.7-8.2)
== END ==
LOC: M IRPRO 12:31
PROVIDERS: ATTEND Internal Medicine Infectious Disease
DX: N39.0 Urinary tract infection, site not specified (principal)
CPT/HCPCS: 36569; 80053; 85025; 86140; C1751

== ENCOUNTER → 2022-07-09 | Outpatient (CLI) | payer BC, OTHER ==
[2022-07-09 18:07] LABS: BASO % 0.8 % (0.0-1.0); EOS # 0.1 10^3/uL (0.0-0.5); EOS % 1.2 % (0.0-3.0); HEMATOCRIT 40.4 % (36.0-47.0); HEMOGLOBIN 12.8 g/dl (12.0-15.5); LYMPH # 2.1 10^3/uL (1.5-5.0); LYMPH % 40.3 % (24.0-44.0); MEAN CORPUSCULAR HEMOGLOBIN 30.7 pg (27.0-33.0); MEAN CORPUSCULAR HGB CONC 31.7 g/dl (32.0-36.5); MEAN CORPUSCULAR VOLUME 96.9 fl (80.0-96.0); MONO # 0.4 10^3/uL (0.0-0.8); MONO % 6.7 % (2.0-8.0); NEUTROPHILS # 2.6 10^3/uL (1.5-8.5); NEUTROPHILS % 50.6 % (36.0-66.0); PLATELET COUNT, AUTOMATED 230 10^3/uL (150-450); RED BLOOD COUNT 4.17 10^6/uL (4.00-5.40); WHITE BLOOD COUNT 5.2 10^3/uL (4.0-10.0)
== END ==
LOC: M LAB 17:11
PROVIDERS: ATTEND Internal Medicine Infectious Disease
DX: A49.8 Other bacterial infections of unspecified site (principal); Q61.5 Medullary cystic kidney; N20.0 Calculus of kidney

== ENCOUNTER → 2022-07-09 | Outpatient (REF) | payer BC, OTHER ==
[2022-07-09 11:25] LABS: APPEARANCE, URINE HAZY (CLEAR); BACTERIA, URINE AUTO NEGATIVE (NEGATIVE); BILIRUBIN, URINE AUTO NEGATIVE (NEGATIVE); BLOOD, URINE BLOOD 1+ (NEGATIVE); COLOR, URINE YELLOW (YELLOW); GLUCOSE, URINE (UA) AUTO NEGATIVE (NEGATIVE); KETONE, URINE AUTO NEGATIVE (NEGATIVE); LEUKOCYTE ESTERASE, URINE AUTO 3+ (NEGATIVE); NITRITE, URINE AUTO NEGATIVE (NEGATIVE); PROTEIN, URINE AUTO NEGATIVE (NEGATIVE); RBC, URINE AUTO 3 /HPF (0-3); SPECIFIC GRAVITY URINE AUTO 1.006 (1.002-1.035); SQUAMOUS EPITHELIAL CELL UR AU 0 /HPF (0-6); UROBILINOGEN, URINE AUTO 0.2 mg/dL (0.0-2.0); WBC, URINE AUTO 36 /HPF (0-3)
== END ==
LOC: M SFHCPLAZ 10:37
PROVIDERS: ATTEND Internal Medicine Infectious Disease
DX: A49.8 Other bacterial infections of unspecified site (principal)

== ENCOUNTER → 2022-08-23 | Outpatient (CLI) | payer BC, OTHER | LOC: M RAD 11:07 | DX: M25.551 Pain in right hip (principal); Z96.641 Presence of right artificial hip joint ==

== ENCOUNTER → 2022-09-17 | Outpatient (CLI) | payer BC, OTHER | LOC: M RAD 12:59 | PROVIDERS: ATTEND Orthopaedic Surgery | DX: Z96.641 Presence of right artificial hip joint (principal) ==

== ENCOUNTER → 2022-09-30 | Outpatient (REF) | payer BC, OTHER ==
[2022-09-30 13:07] LABS: APPEARANCE, URINE HAZY (CLEAR); BACTERIA, URINE AUTO 1+ (NEGATIVE); BILIRUBIN, URINE AUTO NEGATIVE (NEGATIVE); BLOOD, URINE BLOOD 1+ (NEGATIVE); COLOR, URINE YELLOW (YELLOW); GLUCOSE, URINE (UA) AUTO NEGATIVE (NEGATIVE); KETONE, URINE AUTO NEGATIVE (NEGATIVE); LEUKOCYTE ESTERASE, URINE AUTO 3+ (NEGATIVE); MUCUS, URINE SMALL (NEGATIVE); NITRITE, URINE AUTO POSITIVE (NEGATIVE); PROTEIN, URINE AUTO NEGATIVE (NEGATIVE); RBC, URINE AUTO 4 /HPF (0-3); SPECIFIC GRAVITY URINE AUTO 1.011 (1.002-1.035); SQUAMOUS EPITHELIAL CELL UR AU 1 /HPF (0-6); UROBILINOGEN, URINE AUTO 0.2 mg/dL (0.0-2.0); WBC, URINE AUTO 44 /HPF (0-3)
== END ==
LOC: M SFHCPLAZ 12:25
PROVIDERS: ATTEND Internal Medicine Infectious Disease
DX: N39.0 Urinary tract infection, site not specified (principal)

== ENCOUNTER 2022-10-03 16:00 | Outpatient (CLI) | payer BC, OTHER ==
[~2022-10-03] VITALS: Ht 180.3 cm; Wt 65.0 kg
[~2022-10-03 16:00] MED LIST changes: -LIDOCAINE 1% MDV 20ML VIAL As Ordered ONE
[2022-10-03] MEDS ORDERED: CEFEPIME HCL 2 GM in D5W MINI-BAG PLUS 50 ML IV ONE (16:15)
[2022-10-03 16:31] VITALS: BP 115/73; O2SAT 100
[2022-10-03] MEDS ORDERED: SODIUM CHLORIDE 0.9% INJ 10 ML SYR IV SCH (16:40)
[2022-10-03] MEDS ORDERED: SODIUM CHLORIDE 0.9% INJ 10 ML SYR IV PRN (16:40)
[2022-10-03 16:48] LABS: HEMATOCRIT 38.4 % (36.0-47.0); HEMOGLOBIN 12.3 g/dl (12.0-15.5); MEAN CORPUSCULAR HEMOGLOBIN 31.5 pg (27.0-33.0); MEAN CORPUSCULAR VOLUME 98.5 fl (80.0-96.0); PLATELET COUNT, AUTOMATED 202 10^3/uL (150-450); WHITE BLOOD COUNT 4.7 10^3/uL (4.0-10.0)
[2022-10-03 17:52] VITALS: BP 128/60; O2SAT 100
== END 2022-10-03 17:53 | disposition home or self-care (01) ==
LOC: M INFU 16:00
PROVIDERS: ATTEND Internal Medicine Infectious Disease
DX: N39.0 Urinary tract infection, site not specified (principal); Z88.2 Allergy status to sulfonamides; Z88.1 Allergy status to other antibiotic agents; Z88.8 Allergy status to other drugs, medicaments and biological substances
CPT/HCPCS: 36591; 85027; 86140; 96365; J0692

== ENCOUNTER → 2022-10-03 | Outpatient (CLI) | payer BC, OTHER ==
[~2022-10-03] MED LIST changes: +LIDOCAINE 1% MDV 20ML VIAL As Ordered ONE
[2022-10-03 11:35] VITALS: TEMP 97.9
[2022-10-03 12:26] VITALS: BP 126/77; O2SAT 100
== END ==
LOC: M IRPRO 11:20
PROVIDERS: ATTEND Internal Medicine Infectious Disease
DX: A49.8 Other bacterial infections of unspecified site (principal)

== ENCOUNTER → 2022-10-22 | Outpatient (CLI) | payer BC, OTHER | LOC: M RAD 07:05 | PROVIDERS: ATTEND Urology | DX: N20.0 Calculus of kidney (principal) ==

== ENCOUNTER → 2022-11-12 | Outpatient (REF) | payer OTHER ==
[2022-11-12 10:24] LABS: APPEARANCE, URINE HAZY (CLEAR); BACTERIA, URINE AUTO 1+ (NEGATIVE); BILIRUBIN, URINE AUTO NEGATIVE (NEGATIVE); BLOOD, URINE BLOOD 1+ (NEGATIVE); COLOR, URINE YELLOW (YELLOW); GLUCOSE, URINE (UA) AUTO NEGATIVE (NEGATIVE); KETONE, URINE AUTO NEGATIVE (NEGATIVE); LEUKOCYTE ESTERASE, URINE AUTO 3+ (NEGATIVE); MUCUS, URINE SMALL (NEGATIVE); NITRITE, URINE AUTO POSITIVE (NEGATIVE); PROTEIN, URINE AUTO NEGATIVE (NEGATIVE); RBC, URINE AUTO 4 /HPF (0-3); SPECIFIC GRAVITY URINE AUTO 1.006 (1.002-1.035); SQUAMOUS EPITHELIAL CELL UR AU 0 /HPF (0-6); UROBILINOGEN, URINE AUTO 0.2 mg/dL (0.0-2.0); WBC, URINE AUTO 5 /HPF (0-3)
== END ==
LOC: M SFHCPLAZ 09:39
PROVIDERS: ATTEND Internal Medicine Infectious Disease
DX: N39.0 Urinary tract infection, site not specified (principal)

== ENCOUNTER → 2022-12-24 | Outpatient (REF) | payer OTHER ==
[2022-12-24 19:11] LABS: APPEARANCE, URINE CLOUDY (CLEAR); BACTERIA, URINE AUTO 1+ (NEGATIVE); BILIRUBIN, URINE AUTO NEGATIVE (NEGATIVE); BLOOD, URINE BLOOD 1+ (NEGATIVE); COLOR, URINE AMBER (YELLOW); GLUCOSE, URINE (UA) AUTO NEGATIVE (NEGATIVE); KETONE, URINE AUTO NEGATIVE (NEGATIVE); LEUKOCYTE ESTERASE, URINE AUTO 3+ (NEGATIVE); MUCUS, URINE SMALL (NEGATIVE); NITRITE, URINE AUTO POSITIVE (NEGATIVE); PROTEIN, URINE AUTO 1+ mg/dL (NEGATIVE); RBC, URINE AUTO 18 /HPF (0-3); SPECIFIC GRAVITY URINE AUTO 1.009 (1.002-1.035); SQUAMOUS EPITHELIAL CELL UR AU 0 /HPF (0-6); UROBILINOGEN, URINE AUTO 0.2 mg/dL (0.0-2.0); WBC, URINE AUTO 118 /HPF (0-3)
== END ==
LOC: M SFHCPLAZ 18:40
PROVIDERS: ATTEND Internal Medicine Infectious Disease
DX: A49.8 Other bacterial infections of unspecified site (principal)

== ENCOUNTER → 2023-01-28 | Outpatient (REF) | payer BC, OTHER | LOC: M SFHCADAM 16:01 | PROVIDERS: ATTEND Family Medicine | DX: Z53.9 Procedure and treatment not carried out, unspecified reason (principal) ==

== ENCOUNTER → 2023-01-29 | Outpatient (REF) | payer OTHER, BC ==
[2023-01-29 12:30] LABS: APPEARANCE, URINE HAZY (CLEAR); BACTERIA, URINE AUTO 2+ (NEGATIVE); BILIRUBIN, URINE AUTO NEGATIVE (NEGATIVE); BLOOD, URINE BLOOD 2+ (NEGATIVE); COLOR, URINE YELLOW (YELLOW); GLUCOSE, URINE (UA) AUTO NEGATIVE (NEGATIVE); KETONE, URINE AUTO NEGATIVE (NEGATIVE); LEUKOCYTE ESTERASE, URINE AUTO 3+ (NEGATIVE); NITRITE, URINE AUTO POSITIVE (NEGATIVE); PROTEIN, URINE AUTO NEGATIVE (NEGATIVE); RBC, URINE AUTO 9 /HPF (0-3); SPECIFIC GRAVITY URINE AUTO 1.006 (1.002-1.035); SQUAMOUS EPITHELIAL CELL UR AU 0 /HPF (0-6); UROBILINOGEN, URINE AUTO 0.2 mg/dL (0.0-2.0); WBC, URINE AUTO 45 /HPF (0-3)
== END ==
LOC: M SFHCPLAZ 11:32
PROVIDERS: ATTEND Internal Medicine Infectious Disease
DX: A49.8 Other bacterial infections of unspecified site (principal)

== ENCOUNTER → 2023-02-12 | Outpatient (CLI) | payer BC, OTHER | LOC: M WHC 08:05 | PROVIDERS: ATTEND Advanced Practice Midwife | DX: Z12.31 Encounter for screening mammogram for malignant neoplasm of breast (principal) ==

== ENCOUNTER → 2023-02-12 | Outpatient (REF) | payer OTHER, BC | LOC: M SFHCWAGY 13:25 | PROVIDERS: ATTEND Advanced Practice Midwife | DX: Z12.4 Encounter for screening for malignant neoplasm of cervix (principal) | CPT/HCPCS: 87624; G0123 ==

== ENCOUNTER → 2023-02-23 | Outpatient (REF) | payer BC, OTHER | LOC: M LAB REF 23:25 | PROVIDERS: ATTEND Internal Medicine Infectious Disease | DX: A49.8 Other bacterial infections of unspecified site (principal) ==

== ENCOUNTER → 2023-04-09 | Outpatient (CLI) | payer BC, OTHER | LOC: M WHC 08:17 | PROVIDERS: ATTEND Urology | DX: N20.0 Calculus of kidney (principal); N39.0 Urinary tract infection, site not specified ==

== ENCOUNTER → 2023-04-23 | Outpatient (REF) | payer BC, OTHER ==
[2023-04-23 12:33] LABS: APPEARANCE, URINE HAZY (CLEAR); BACTERIA, URINE AUTO 2+ (NEGATIVE); BILIRUBIN, URINE AUTO NEGATIVE (NEGATIVE); BLOOD, URINE BLOOD 3+ (NEGATIVE); COLOR, URINE YELLOW (YELLOW); GLUCOSE, URINE (UA) AUTO NEGATIVE (NEGATIVE); KETONE, URINE AUTO NEGATIVE (NEGATIVE); LEUKOCYTE ESTERASE, URINE AUTO 3+ (NEGATIVE); NITRITE, URINE AUTO NEGATIVE (NEGATIVE); PROTEIN, URINE AUTO 1+ mg/dL (NEGATIVE); RBC, URINE AUTO TNTC /HPF (0-3); SPECIFIC GRAVITY URINE AUTO 1.009 (1.002-1.035); SQUAMOUS EPITHELIAL CELL UR AU 0 /HPF (0-6); UROBILINOGEN, URINE AUTO 0.2 mg/dL (0.0-2.0); WBC, URINE AUTO 96 /HPF (0-3)
== END ==
LOC: M SFHCPLAZ 11:23
PROVIDERS: ATTEND Internal Medicine Infectious Disease
DX: A49.8 Other bacterial infections of unspecified site (principal)

== ENCOUNTER → 2023-04-23 | Outpatient (REF) | payer BC, OTHER | LOC: M LABWUC 11:37 | PROVIDERS: ATTEND Family Medicine | DX: M81.8 Other osteoporosis without current pathological fracture (principal); E55.9 Vitamin D deficiency, unspecified; N20.0 Calculus of kidney ==

== ENCOUNTER → 2023-08-01 | Outpatient (CLI) | payer BC | LOC: M RAD 08:25 | PROVIDERS: ATTEND Orthopaedic Surgery | DX: Z96.641 Presence of right artificial hip joint (principal) ==

== ENCOUNTER → 2023-09-05 | Outpatient (REF) | payer BC ==
[2023-09-05 16:55] LABS: APPEARANCE, URINE HAZY (CLEAR); BACTERIA, URINE AUTO 3+ (NEGATIVE); BILIRUBIN, URINE AUTO NEGATIVE (NEGATIVE); BLOOD, URINE BLOOD 2+ (NEGATIVE); COLOR, URINE YELLOW (YELLOW); GLUCOSE, URINE (UA) AUTO NEGATIVE (NEGATIVE); KETONE, URINE AUTO NEGATIVE (NEGATIVE); LEUKOCYTE ESTERASE, URINE AUTO 3+ (NEGATIVE); MUCUS, URINE SMALL (NEGATIVE); NITRITE, URINE AUTO POSITIVE (NEGATIVE); PROTEIN, URINE AUTO NEGATIVE (NEGATIVE); RBC, URINE AUTO 12 /HPF (0-3); SPECIFIC GRAVITY URINE AUTO 1.002 (1.002-1.035); SQUAMOUS EPITHELIAL CELL UR AU 0 /HPF (0-6); UROBILINOGEN, URINE AUTO 0.2 mg/dL (0.0-2.0); WBC, URINE AUTO 25 /HPF (0-3)
== END ==
LOC: M SFHCPLAZ 16:14
PROVIDERS: ATTEND Internal Medicine Infectious Disease
DX: A49.8 Other bacterial infections of unspecified site (principal)

== ENCOUNTER → 2023-09-24 | Outpatient (REF) | payer BC ==
[2023-09-24 10:23] LABS: APPEARANCE, URINE HAZY (CLEAR); BACTERIA, URINE AUTO 3+ (NEGATIVE); BILIRUBIN, URINE AUTO NEGATIVE (NEGATIVE); BLOOD, URINE BLOOD 1+ (NEGATIVE); COLOR, URINE YELLOW (YELLOW); GLUCOSE, URINE (UA) AUTO NEGATIVE (NEGATIVE); KETONE, URINE AUTO NEGATIVE (NEGATIVE); LEUKOCYTE ESTERASE, URINE AUTO 3+ (NEGATIVE); MUCUS, URINE SMALL (NEGATIVE); NITRITE, URINE AUTO POSITIVE (NEGATIVE); PROTEIN, URINE AUTO NEGATIVE (NEGATIVE); RBC, URINE AUTO 5 /HPF (0-3); SPECIFIC GRAVITY URINE AUTO 1.005 (1.002-1.035); SQUAMOUS EPITHELIAL CELL UR AU 0 /HPF (0-6); UROBILINOGEN, URINE AUTO 0.2 mg/dL (0.0-2.0); WBC, URINE AUTO 29 /HPF (0-3)
== END ==
LOC: M SFHCPLAZ 09:49
PROVIDERS: ATTEND Internal Medicine Infectious Disease
DX: A49.8 Other bacterial infections of unspecified site (principal)

== ENCOUNTER 2023-09-30 16:42 | Outpatient (CLI) | payer BC ==
[2023-09-30 17:20] VITALS: BP 135/83; O2SAT 99
[2023-09-30] MEDS: CEFEPIME HCL 1 GM in D5W MINI-BAG PLUS 50 ML IV ONE (17:20)
[2023-09-30 17:55] VITALS: BP 124/67; O2SAT 100
[2023-09-30] MEDS: SODIUM CHLORIDE 0.9% INJ 10 ML SYR IV SCH (17:55)
[2023-09-30] MEDS ORDERED: SODIUM CHLORIDE 0.9% INJ 10 ML SYR IV PRN (17:55)
== END 2023-09-30 17:55 ==
LOC: M INFU 16:42
PROVIDERS: ATTEND Internal Medicine Infectious Disease
DX: A49.9 Bacterial infection, unspecified (principal); Z88.1 Allergy status to other antibiotic agents; Z88.2 Allergy status to sulfonamides; Z88.8 Allergy status to other drugs, medicaments and biological substances; Z91.048 Other nonmedicinal substance allergy status
CPT/HCPCS: 96365; J0692

== ENCOUNTER → 2023-10-22 | Outpatient (CLI) | payer BC | LOC: M RAD 07:31 | PROVIDERS: ATTEND Urology | DX: N39.0 Urinary tract infection, site not specified (principal); N28.1 Cyst of kidney, acquired; R93.429 Abnormal radiologic findings on diagnostic imaging of unspecified kidney ==

== ENCOUNTER → 2023-12-03 | Outpatient (REF) | payer OTHER ==
[2023-12-03 18:18] LABS: APPEARANCE, URINE HAZY (CLEAR); BACTERIA, URINE AUTO 1+ (NEGATIVE); BILIRUBIN, URINE AUTO NEGATIVE (NEGATIVE); BLOOD, URINE BLOOD 1+ (NEGATIVE); COLOR, URINE YELLOW (YELLOW); GLUCOSE, URINE (UA) AUTO NEGATIVE (NEGATIVE); KETONE, URINE AUTO NEGATIVE (NEGATIVE); LEUKOCYTE ESTERASE, URINE AUTO 3+ (NEGATIVE); NITRITE, URINE AUTO POSITIVE (NEGATIVE); PROTEIN, URINE AUTO NEGATIVE (NEGATIVE); RBC, URINE AUTO 1 /HPF (0-3); SPECIFIC GRAVITY URINE AUTO 1.005 (1.002-1.035); SQUAMOUS EPITHELIAL CELL UR AU 0 /HPF (0-6); UROBILINOGEN, URINE AUTO 0.2 mg/dL (0.0-2.0); WBC, URINE AUTO 4 /HPF (0-3)
== END ==
LOC: M SFHCPLAZ 17:30
PROVIDERS: ATTEND Internal Medicine Infectious Disease
DX: A49.8 Other bacterial infections of unspecified site (principal)

== ENCOUNTER → 2024-02-04 | Outpatient (CLI) | payer OTHER, BC ==
[2024-02-04 10:48] LABS: HEMATOCRIT 39.2 % (36.0-47.0); HEMOGLOBIN 12.6 g/dl (12.0-15.5); MEAN CORPUSCULAR HEMOGLOBIN 31.5 pg (27.0-33.0); MEAN CORPUSCULAR HGB CONC 32.1 g/dl (32.0-36.5); PLATELET COUNT, AUTOMATED 206 10^3/uL (150-450); WHITE BLOOD COUNT 3.8 10^3/uL (4.0-10.0)
[2024-02-04 11:03] LABS: HEMOGLOBIN A1c 5.2 % (4.0-6.0)
[2024-02-04 11:21] LABS: ALBUMIN 3.8 G/DL (3.2-5.2); ALKALINE PHOSPHATASE 63 U/L (35-104); ALT/SGPT 22 U/L (7.0-40); AST/SGOT 17 U/L (<34); BILIRUBIN,TOTAL 0.7 MG/DL (0.3-1.2); BLOOD UREA NITROGEN 13 MG/DL (9-23); CALCIUM LEVEL 9.5 MG/DL (8.5-10.1); CARBON DIOXIDE LEVEL 30 MMOL/L (20-31); CHLORIDE LEVEL 100 MMOL/L (98-107); CHOLESTEROL LEVEL 261 MG/DL (<200); CHOLESTEROL RISK RATIO 2.65 (<5); CREATININE FOR GFR 0.87 MG/DL (0.55-1.30); GLOMERULAR FILTRATION RATE > 60.0 (>51); GLUCOSE, FASTING 79 MG/DL (60-100); HDL CHOLESTEROL 98.2 MG/DL (>40); LDL CHOLESTEROL 148.2 MG/DL (<100); NON-HDL-C 162.8 MG/DL; POTASSIUM SERUM 3.8 MMOL/L (3.5-5.1); SODIUM LEVEL 137 MMOL/L (136-145); TOTAL PROTEIN 7.3 G/DL (5.7-8.2); TRIGLYCERIDES LEVEL 73 MG/DL (<150)
[2024-02-04 11:25] LABS: FREE T4 0.97 NG/DL (0.89-1.76); TOTAL 25(OH) VITAMIN D 61.4 NG/ML (20.0-100.0)
== END ==
LOC: M WUC 08:07
PROVIDERS: ATTEND Family Medicine
DX: E55.9 Vitamin D deficiency, unspecified (principal); M81.8 Other osteoporosis without current pathological fracture; E78.5 Hyperlipidemia, unspecified; N39.0 Urinary tract infection, site not specified; M67.80 Other specified disorders of synovium and tendon, unspecified site; Z13.1 Encounter for screening for diabetes mellitus

== ENCOUNTER → 2024-03-25 | Outpatient (REF) | payer OTHER ==
[2024-03-25 11:56] LABS: APPEARANCE, URINE HAZY (CLEAR); BACTERIA, URINE AUTO 1+ (NEGATIVE); BILIRUBIN, URINE AUTO NEGATIVE (NEGATIVE); BLOOD, URINE BLOOD 1+ (NEGATIVE); COLOR, URINE YELLOW (YELLOW); GLUCOSE, URINE (UA) AUTO NEGATIVE (NEGATIVE); KETONE, URINE AUTO NEGATIVE (NEGATIVE); LEUKOCYTE ESTERASE, URINE AUTO 3+ (NEGATIVE); MUCUS, URINE SMALL (NEGATIVE); NITRITE, URINE AUTO POSITIVE (NEGATIVE); PROTEIN, URINE AUTO NEGATIVE (NEGATIVE); RBC, URINE AUTO 19 /HPF (0-3); SPECIFIC GRAVITY URINE AUTO 1.011 (1.002-1.035); SQUAMOUS EPITHELIAL CELL UR AU 0 /HPF (0-6); UROBILINOGEN, URINE AUTO 0.2 mg/dL (0.0-2.0); WBC, URINE AUTO 36 /HPF (0-3)
== END ==
LOC: M SFHCPLAZ 09:41
PROVIDERS: ATTEND Internal Medicine Infectious Disease
DX: N39.0 Urinary tract infection, site not specified (principal)

== ENCOUNTER → 2024-03-25 | Outpatient (CLI) | payer BC ==
[2024-03-25] MEDS: CEFEPIME HCL 1 GM in DEXTROSE 5% (D5W) ADV/MINI-BAG 50 ML IV ONE (16:14)
[2024-03-25 16:26] VITALS: BP 124/66; O2SAT 100
[2024-03-25 17:24] LABS: BASO % 0.3 % (0.0-1.0); EOS # 0.1 10^3/uL (0.0-0.5); EOS % 0.8 % (0.0-3.0); HEMATOCRIT 35.7 % (36.0-47.0); HEMOGLOBIN 11.6 g/dl (12.0-15.5); LYMPH # 1.2 10^3/uL (1.5-5.0); LYMPH % 19.5 % (24.0-44.0); MEAN CORPUSCULAR HEMOGLOBIN 31.4 pg (27.0-33.0); MEAN CORPUSCULAR HGB CONC 32.5 g/dl (32.0-36.5); MEAN CORPUSCULAR VOLUME 96.5 fl (80.0-96.0); MONO # 0.8 10^3/uL (0.0-0.8); MONO % 12.4 % (2.0-8.0); NEUTROPHILS # 4.1 10^3/uL (1.5-8.5); NEUTROPHILS % 66.7 % (36.0-66.0); PLATELET COUNT, AUTOMATED 186 10^3/uL (150-450); WHITE BLOOD COUNT 6.1 10^3/uL (4.0-10.0)
[2024-03-25 17:40] LABS: ALBUMIN 3.3 G/DL (3.2-5.2); ALKALINE PHOSPHATASE 76 U/L (35-104); ALT/SGPT 17 U/L (7.0-40); AST/SGOT 15 U/L (<34); BILIRUBIN,TOTAL 0.4 MG/DL (0.3-1.2); BLOOD UREA NITROGEN 10 MG/DL (9-23); C REACTIVE PROTEIN QUANTITATIV 3.64 MG/DL (<1.0); CALCIUM LEVEL 8.8 MG/DL (8.5-10.1); CARBON DIOXIDE LEVEL 29 MMOL/L (20-31); CHLORIDE LEVEL 101 MMOL/L (98-107); CREATININE FOR GFR 0.73 MG/DL (0.55-1.30); GLOMERULAR FILTRATION RATE > 60.0 (>51); GLUCOSE, FASTING 98 MG/DL (60-100); POTASSIUM SERUM 4.2 MMOL/L (3.5-5.1); SODIUM LEVEL 139 MMOL/L (136-145); TOTAL PROTEIN 7.2 G/DL (5.7-8.2)
== END ==
LOC: M INFU 15:09
PROVIDERS: ATTEND Internal Medicine Infectious Disease
DX: N10 Acute pyelonephritis (principal); Z88.2 Allergy status to sulfonamides; Z88.1 Allergy status to other antibiotic agents; Z88.8 Allergy status to other drugs, medicaments and biological substances; Z91.048 Other nonmedicinal substance allergy status
CPT/HCPCS: 80053; 85025; 86140; 96365; J0692

== ENCOUNTER → 2024-03-25 | Outpatient (CLI) | payer BC ==
[~2024-03-25] MED LIST changes: +SODIUM CHLORIDE 0.9% INJ 10 ML SYR IV PRN; +SODIUM CHLORIDE 0.9% INJ 10 ML SYR IV SCH
== END ==
LOC: M IRPRO 15:04
PROVIDERS: ATTEND Internal Medicine Infectious Disease
DX: N10 Acute pyelonephritis (principal)
CPT/HCPCS: 36410; C1751

== ENCOUNTER → 2024-04-12 | Outpatient (REF) | payer BC ==
[~2024-04-12] MED LIST changes: -SODIUM CHLORIDE 0.9% INJ 10 ML SYR IV PRN; -SODIUM CHLORIDE 0.9% INJ 10 ML SYR IV SCH
[2024-04-12 11:35] LABS: APPEARANCE, URINE HAZY (CLEAR); BACTERIA, URINE AUTO 1+ (NEGATIVE); BILIRUBIN, URINE AUTO NEGATIVE (NEGATIVE); BLOOD, URINE BLOOD 1+ (NEGATIVE); COLOR, URINE YELLOW (YELLOW); GLUCOSE, URINE (UA) AUTO NEGATIVE (NEGATIVE); KETONE, URINE AUTO NEGATIVE (NEGATIVE); LEUKOCYTE ESTERASE, URINE AUTO 3+ (NEGATIVE); MUCUS, URINE SMALL (NEGATIVE); NITRITE, URINE AUTO POSITIVE (NEGATIVE); PROTEIN, URINE AUTO NEGATIVE (NEGATIVE); RBC, URINE AUTO 11 /HPF (0-3); SPECIFIC GRAVITY URINE AUTO 1.009 (1.002-1.035); SQUAMOUS EPITHELIAL CELL UR AU 0 /HPF (0-6); UROBILINOGEN, URINE AUTO 0.2 mg/dL (0.0-2.0); WBC, URINE AUTO 50 /HPF (0-3)
== END ==
LOC: M SFHCPLAZ 09:45
PROVIDERS: ATTEND Internal Medicine Infectious Disease
DX: N39.0 Urinary tract infection, site not specified (principal)

== ENCOUNTER → 2024-04-16 | Outpatient (CLI) | payer BC ==
[~2024-04-16] VITALS: Ht 180.3 cm; Wt 67.3 kg
[2024-04-16] MEDS: MEROPENEM INJ 1 GM in IV 1 EA IV ONE ×2 (15:49→16:36)
[2024-04-16 16:00] VITALS: BP 127/68; O2SAT 99
[2024-04-16 16:17] LABS: HEMATOCRIT 36.6 % (36.0-47.0); HEMOGLOBIN 11.6 g/dl (12.0-15.5); MEAN CORPUSCULAR HEMOGLOBIN 30.8 pg (27.0-33.0); MEAN CORPUSCULAR HGB CONC 31.7 g/dl (32.0-36.5); MEAN CORPUSCULAR VOLUME 97.1 fl (80.0-96.0); PLATELET COUNT, AUTOMATED 193 10^3/uL (150-450); RED BLOOD COUNT 3.77 10^6/uL (4.00-5.40)
[2024-04-16 16:25] LABS: ERYTHROCYTE SEDIMENTATION RATE 58 mm/hr (0-30)
== END ==
LOC: M IRPRO 14:06
PROVIDERS: ATTEND Internal Medicine Infectious Disease
DX: A49.8 Other bacterial infections of unspecified site (principal)
CPT/HCPCS: 36569; 85027; 85652; 86140; C1751; J2184

== ENCOUNTER 2024-04-23 14:49 | Outpatient (CLI) | payer BC ==
[~2024-04-23] VITALS: Ht 180.3 cm; Wt 71.0 kg
[~2024-04-23 14:49] MED LIST changes: -ISOVUE-370 76% 100ML VIAL As Ordered ONE
[2024-04-23 16:06] LABS: HEMATOCRIT 36.1 % (36.0-47.0); HEMOGLOBIN 11.6 g/dl (12.0-15.5); MEAN CORPUSCULAR HEMOGLOBIN 31.2 pg (27.0-33.0); MEAN CORPUSCULAR HGB CONC 32.1 g/dl (32.0-36.5); PLATELET COUNT, AUTOMATED 253 10^3/uL (150-450); RED BLOOD COUNT 3.72 10^6/uL (4.00-5.40); WHITE BLOOD COUNT 3.6 10^3/uL (4.0-10.0)
[2024-04-23 16:10] VITALS: BP 119/67; O2SAT 100
[2024-04-23 16:12] LABS: ERYTHROCYTE SEDIMENTATION RATE 42 mm/hr (0-30)
[2024-04-23 16:36] LABS: ATYPICAL LYMPH 10 % (0-5); BASOPHILS 2 % (0-1); EOSINOPHILS 1 % (0-3); LYMPHOCYTES 32 % (16-44); MONOCYTES 1 % (0-5); NEUTROPHILS 54 % (28-66)
[2024-04-23 16:38] LABS: PLATELET ESTIMATE NORMAL (NORMAL)
[2024-04-23 16:40] LABS: ALBUMIN 3.3 G/DL (3.2-5.2); ALKALINE PHOSPHATASE 69 U/L (35-104); ALT/SGPT 19 U/L (7.0-40); AST/SGOT 18 U/L (<34); BILIRUBIN,TOTAL 0.4 MG/DL (0.3-1.2); BLOOD UREA NITROGEN 10 MG/DL (9-23); C REACTIVE PROTEIN QUANTITATIV < 0.50 MG/DL (<1.0); CALCIUM LEVEL 8.5 MG/DL (8.5-10.1); CARBON DIOXIDE LEVEL 30 MMOL/L (20-31); CHLORIDE LEVEL 101 MMOL/L (98-107); CREATININE FOR GFR 0.78 MG/DL (0.55-1.30); GLOMERULAR FILTRATION RATE > 60.0 (>51); GLUCOSE, FASTING 85 MG/DL (60-100); POTASSIUM SERUM 4.5 MMOL/L (3.5-5.1); SODIUM LEVEL 139 MMOL/L (136-145); TOTAL PROTEIN 6.9 G/DL (5.7-8.2)
== END 2024-04-23 16:10 ==
LOC: M INFU 14:49
PROVIDERS: ATTEND Internal Medicine Infectious Disease
DX: N10 Acute pyelonephritis (principal); N39.0 Urinary tract infection, site not specified; Z48.00 Encounter for change or removal of nonsurgical wound dressing

== ENCOUNTER → 2024-04-23 | Outpatient (CLI) | payer BC ==
[~2024-04-23] MED LIST changes: +ISOVUE-370 76% 100ML VIAL As Ordered ONE
== END ==
LOC: M RAD 14:47
PROVIDERS: ATTEND Internal Medicine Infectious Disease
DX: R10.9 Unspecified abdominal pain (principal); A49.8 Other bacterial infections of unspecified site; N12 Tubulo-interstitial nephritis, not specified as acute or chronic; N20.0 Calculus of kidney
CPT/HCPCS: 74178; Q9967

== ENCOUNTER → 2024-05-12 | Outpatient (CLI) | payer BC | LOC: M WUC 10:19 | PROVIDERS: ATTEND Family Medicine | DX: Z01.84 Encounter for antibody response examination (principal) ==

== ENCOUNTER → 2024-05-28 | Outpatient (REF) | payer OTHER ==
[2024-05-28 12:12] LABS: APPEARANCE, URINE CLEAR (CLEAR); BACTERIA, URINE AUTO 1+ (NEGATIVE); BILIRUBIN, URINE AUTO NEGATIVE (NEGATIVE); BLOOD, URINE BLOOD NEGATIVE (NEGATIVE); COLOR, URINE YELLOW (YELLOW); GLUCOSE, URINE (UA) AUTO NEGATIVE (NEGATIVE); KETONE, URINE AUTO NEGATIVE (NEGATIVE); LEUKOCYTE ESTERASE, URINE AUTO 3+ (NEGATIVE); MUCUS, URINE SMALL (NEGATIVE); NITRITE, URINE AUTO POSITIVE (NEGATIVE); PROTEIN, URINE AUTO NEGATIVE (NEGATIVE); RBC, URINE AUTO 3 /HPF (0-3); SPECIFIC GRAVITY URINE AUTO 1.008 (1.002-1.035); SQUAMOUS EPITHELIAL CELL UR AU 0 /HPF (0-6); UROBILINOGEN, URINE AUTO 0.2 mg/dL (0.0-2.0); WBC, URINE AUTO 17 /HPF (0-3)
== END ==
LOC: M SFHCPLAZ 11:50
PROVIDERS: ATTEND Internal Medicine Infectious Disease
DX: N39.0 Urinary tract infection, site not specified (principal)

== ENCOUNTER → 2024-06-09 | Outpatient (CLI) | payer BC | LOC: M WHC 08:14 | PROVIDERS: ATTEND Advanced Practice Midwife | DX: Z12.31 Encounter for screening mammogram for malignant neoplasm of breast (principal); R92.333 Mammographic heterogeneous density, bilateral breasts ==

== ENCOUNTER → 2024-06-09 | Outpatient (REF) | payer OTHER, BC ==
[2024-06-11 15:06] LABS: HPV APTIMA Not Detected (Not Detected)
== END ==
LOC: M SFHCWAGY 09:53
PROVIDERS: ATTEND Advanced Practice Midwife
DX: Z12.4 Encounter for screening for malignant neoplasm of cervix (principal); N95.2 Postmenopausal atrophic vaginitis
CPT/HCPCS: 87624; G0123

== ENCOUNTER → 2024-06-09 | Outpatient (CLI) | payer OTHER, BC ==
[2024-06-09 13:16] LABS: BASO % 0.6 % (0.0-1.0); EOS # 0.1 10^3/uL (0.0-0.5); HEMATOCRIT 36.9 % (36.0-47.0); LYMPH # 1.2 10^3/uL (1.5-5.0); LYMPH % 19.5 % (24.0-44.0); MEAN CORPUSCULAR HEMOGLOBIN 31.7 pg (27.0-33.0); MEAN CORPUSCULAR HGB CONC 32.5 g/dl (32.0-36.5); MEAN CORPUSCULAR VOLUME 97.4 fl (80.0-96.0); MONO # 0.7 10^3/uL (0.0-0.8); MONO % 10.8 % (2.0-8.0); NEUTROPHILS # 4.3 10^3/uL (1.5-8.5); NEUTROPHILS % 67.8 % (36.0-66.0); PLATELET COUNT, AUTOMATED 221 10^3/uL (150-450); RED BLOOD COUNT 3.79 10^6/uL (4.00-5.40); WHITE BLOOD COUNT 6.3 10^3/uL (4.0-10.0)
[2024-06-09 13:49] LABS: BLOOD UREA NITROGEN 13 MG/DL (9-23); CALCIUM LEVEL 9.2 MG/DL (8.5-10.1); CARBON DIOXIDE LEVEL 30 MMOL/L (20-31); CHLORIDE LEVEL 103 MMOL/L (98-107); CREATININE FOR GFR 0.87 MG/DL (0.55-1.30); GLOMERULAR FILTRATION RATE > 60.0 (>51); GLUCOSE, FASTING 89 MG/DL (60-100); POTASSIUM SERUM 4.3 MMOL/L (3.5-5.1); SODIUM LEVEL 139 MMOL/L (136-145)
== END ==
LOC: M WUC 09:51
PROVIDERS: ATTEND Urology
DX: N39.0 Urinary tract infection, site not specified (principal); N20.0 Calculus of kidney

== ENCOUNTER → 2024-06-21 | Outpatient (CLI) | payer BC ==
[~2024-06-21] MED LIST changes: +SODIUM CHLORIDE 0.9% INJ 10 ML SYR IV PRN; +SODIUM CHLORIDE 0.9% INJ 10 ML SYR IV SCH
== END ==
LOC: M IRPRO 09:42
PROVIDERS: ATTEND Internal Medicine Infectious Disease
DX: A49.8 Other bacterial infections of unspecified site (principal); N39.0 Urinary tract infection, site not specified
CPT/HCPCS: 36410; C1751

== ENCOUNTER → 2024-07-13 | Outpatient (REF) | payer BC ==
[~2024-07-13] MED LIST changes: -SODIUM CHLORIDE 0.9% INJ 10 ML SYR IV PRN; -SODIUM CHLORIDE 0.9% INJ 10 ML SYR IV SCH
== END ==
LOC: M SFHCPLAZ 15:26
PROVIDERS: ATTEND Internal Medicine Infectious Disease
DX: B37.9 Candidiasis, unspecified (principal)

== ENCOUNTER → 2024-10-19 | Outpatient (CLI) | payer BC ==
[~2024-10-19] MED LIST changes: -EQL50TAB2 PO; +VITA1TAB82 PO
== END ==
LOC: M RAD 06:31
PROVIDERS: ATTEND Urology
DX: N20.0 Calculus of kidney (principal)

== ENCOUNTER → 2024-11-12 | Outpatient (REF) | payer BC ==
[2024-11-12 13:02] LABS: APPEARANCE, URINE CLEAR (CLEAR); BACTERIA, URINE AUTO 3+ (NEGATIVE); BILIRUBIN, URINE AUTO NEGATIVE (NEGATIVE); BLOOD, URINE BLOOD NEGATIVE (NEGATIVE); GLUCOSE, URINE (UA) AUTO NEGATIVE (NEGATIVE); KETONE, URINE AUTO NEGATIVE (NEGATIVE); LEUKOCYTE ESTERASE, URINE AUTO 3+ (NEGATIVE); MUCUS, URINE SMALL (NEGATIVE); NITRITE, URINE AUTO POSITIVE (NEGATIVE); PROTEIN, URINE AUTO NEGATIVE (NEGATIVE); RBC, URINE AUTO 0 /HPF (0-3); SPECIFIC GRAVITY URINE AUTO 1.008 (1.002-1.035); SQUAMOUS EPITHELIAL CELL UR AU 0 /HPF (0-6); UROBILINOGEN, URINE AUTO 0.2 mg/dL (0.0-2.0); WBC, URINE AUTO 16 /HPF (0-3)
== END ==
LOC: M SFHCPLAZ 12:06
PROVIDERS: ATTEND Internal Medicine Infectious Disease
DX: N39.0 Urinary tract infection, site not specified (principal)

== ENCOUNTER 2024-11-16 13:58 | Outpatient (CLI) | payer BC ==
[2024-11-16 15:50] VITALS: BP 131/60; O2SAT 100
[2024-11-16] MEDS ORDERED: SODIUM CHLORIDE 0.9% INJ 10 ML SYR IV PRN (16:15)
[2024-11-16] MEDS: CEFEPIME HCL 1 GM in DEXTROSE 5% (D5W) ADV/MINI-BAG 50 ML IV ONE (16:40)
[2024-11-16] MEDS: SODIUM CHLORIDE 0.9% INJ 10 ML SYR IV SCH (16:44)
[2024-11-16 17:22] VITALS: BP 122/64; O2SAT 100
[2024-11-16 17:42] LABS: BASO # 0.0 10^3/uL (0.0-0.2); BASO % 0.8 % (0.0-1.0); EOS # 0.1 10^3/uL (0.0-0.5); EOS % 2.8 % (0.0-3.0); LYMPH # 1.5 10^3/uL (1.5-5.0); LYMPH % 38.1 % (24.0-44.0); MONO # 0.4 10^3/uL (0.0-0.8); MONO % 9.0 % (2.0-8.0); NEUTROPHILS # 2.0 10^3/uL (1.5-8.5); NEUTROPHILS % 49.3 % (36.0-66.0); PLATELET COUNT, AUTOMATED 208 10^3/uL (150-450)
[2024-11-16 18:02] LABS: C REACTIVE PROTEIN QUANTITATIV < 0.50 MG/DL (<1.0)
[2024-11-16 18:16] LABS: ALT/SGPT 20 U/L (7.0-40); AST/SGOT 21 U/L (<34); CALCIUM LEVEL 9.1 MG/DL (8.5-10.1); CARBON DIOXIDE LEVEL 32 MMOL/L (20-31); CHLORIDE LEVEL 104 MMOL/L (98-107); CREATININE FOR GFR 0.86 MG/DL (0.55-1.30); GLOMERULAR FILTRATION RATE 78.3 (>51); POTASSIUM SERUM 4.0 MMOL/L (3.5-5.1); SODIUM LEVEL 143 MMOL/L (136-145)
== END 2024-11-16 17:25 ==
LOC: M INFU 13:58
PROVIDERS: ATTEND Internal Medicine Infectious Disease
DX: A49.8 Other bacterial infections of unspecified site (principal); N20.2 Calculus of kidney with calculus of ureter; Z88.2 Allergy status to sulfonamides; Z88.1 Allergy status to other antibiotic agents; Z88.8 Allergy status to other drugs, medicaments and biological substances; Z91.89 Other specified personal risk factors, not elsewhere classified
CPT/HCPCS: 80053; 85025; 86140; 96365; J0692

== ENCOUNTER → 2024-11-16 | Outpatient (CLI) | payer BC | LOC: M IRPRO 13:54 | PROVIDERS: ATTEND Internal Medicine Infectious Disease | DX: A49.9 Bacterial infection, unspecified (principal); N20.2 Calculus of kidney with calculus of ureter | CPT/HCPCS: 36410; 76775; C1751 ==

== ENCOUNTER → 2025-01-04 | Outpatient (REF) | payer BC ==
[2025-01-05 12:42] LABS: APPEARANCE, URINE HAZY (CLEAR); BACTERIA, URINE AUTO 1+ (NEGATIVE); BILIRUBIN, URINE AUTO NEGATIVE (NEGATIVE); BLOOD, URINE BLOOD NEGATIVE (NEGATIVE); GLUCOSE, URINE (UA) AUTO NEGATIVE (NEGATIVE); KETONE, URINE AUTO NEGATIVE (NEGATIVE); LEUKOCYTE ESTERASE, URINE AUTO 3+ (NEGATIVE); NITRITE, URINE AUTO POSITIVE (NEGATIVE); PROTEIN, URINE AUTO NEGATIVE (NEGATIVE); RBC, URINE AUTO 7 /HPF (0-3); SPECIFIC GRAVITY URINE AUTO 1.013 (1.002-1.035); SQUAMOUS EPITHELIAL CELL UR AU 0 /HPF (0-6); UROBILINOGEN, URINE AUTO 0.2 mg/dL (0.0-2.0); WBC, URINE AUTO 69 /HPF (0-3)
== END ==
LOC: M SFHCPLAZ 12:25
PROVIDERS: ATTEND Internal Medicine Infectious Disease
DX: N39.0 Urinary tract infection, site not specified (principal)

== ENCOUNTER → 2025-02-22 | Outpatient (REF) | payer BC, OTHER ==
[2025-02-22 12:49] LABS: APPEARANCE, URINE CLEAR (CLEAR); BACTERIA, URINE AUTO 2+ (NEGATIVE); BILIRUBIN, URINE AUTO NEGATIVE (NEGATIVE); BLOOD, URINE BLOOD NEGATIVE (NEGATIVE); GLUCOSE, URINE (UA) AUTO NEGATIVE (NEGATIVE); KETONE, URINE AUTO NEGATIVE (NEGATIVE); LEUKOCYTE ESTERASE, URINE AUTO 3+ (NEGATIVE); MUCUS, URINE SMALL (NEGATIVE); NITRITE, URINE AUTO POSITIVE (NEGATIVE); PROTEIN, URINE AUTO NEGATIVE (NEGATIVE); RBC, URINE AUTO 2 /HPF (0-3); SPECIFIC GRAVITY URINE AUTO 1.010 (1.002-1.035); SQUAMOUS EPITHELIAL CELL UR AU 0 /HPF (0-6); UROBILINOGEN, URINE AUTO 0.2 mg/dL (0.0-2.0); WBC, URINE AUTO 11 /HPF (0-3)
== END ==
LOC: M SFHCPLAZ 12:03
PROVIDERS: ATTEND Internal Medicine Infectious Disease
DX: N39.0 Urinary tract infection, site not specified (principal)